=== PATIENT | female | born 1945 | race Caucasian/White ===

== ENCOUNTER → 2019-06-30 08:33 | Outpatient (BNVA) | payer MEDICARE, OTHER, SELFPAY | PROVIDERS: Family Provider Nurse Practitioner; PCP Nurse Practitioner | DX: N18.3 Chronic kidney disease, stage 3 (moderate) (principal); E55.9 Vitamin D deficiency, unspecified; E11.9 Type 2 diabetes mellitus without complications; E03.9 Hypothyroidism, unspecified; Z94.0 Kidney transplant status | CPT/HCPCS: 80069; 82306; 82310; 82570; 83036; 83970; 84156; 84443; 85025 ==

== ENCOUNTER → 2019-10-09 08:33 | Outpatient (BNVA) | payer MEDICARE, OTHER, SELFPAY | PROVIDERS: Family Provider Nurse Practitioner; PCP Nurse Practitioner; Visit Provider Internal Medicine | DX: E11.9 Type 2 diabetes mellitus without complications (principal); N18.3 Chronic kidney disease, stage 3 (moderate) | CPT/HCPCS: 80069; 82044; 82306; 82542; 85025 ==

== ENCOUNTER → 2019-11-10 08:19 | Outpatient (BNVA) | payer MEDICARE, OTHER, SELFPAY | PROVIDERS: Family Provider Nurse Practitioner; PCP Nurse Practitioner; Visit Provider Nurse Practitioner | DX: E11.9 Type 2 diabetes mellitus without complications (principal); E03.9 Hypothyroidism, unspecified | CPT/HCPCS: 80053; 80061; 83036; 84443 ==

== ENCOUNTER → 2020-05-30 08:36 | Outpatient (BNVA) | payer MEDICARE, OTHER, SELFPAY | PROVIDERS: Family Provider Nurse Practitioner; PCP Nurse Practitioner; Visit Provider Nurse Practitioner | DX: E03.9 Hypothyroidism, unspecified (principal); E55.9 Vitamin D deficiency, unspecified; E78.5 Hyperlipidemia, unspecified; J44.9 Chronic obstructive pulmonary disease, unspecified; I12.9 Hypertensive chronic kidney disease with stage 1 through stage 4 chronic kidney disease, or unspecified chronic kidney disease; E11.22 Type 2 diabetes mellitus with diabetic chronic kidney disease; N18.9 Chronic kidney disease, unspecified | CPT/HCPCS: 80053; 80061; 82306; 83036; 84443; 85025 ==

== ENCOUNTER → 2020-06-28 14:17 | Outpatient (BNVA) | payer MEDICARE, OTHER, SELFPAY | PROVIDERS: Family Provider Nurse Practitioner; PCP Nurse Practitioner; Visit Provider Nurse Practitioner Family | DX: R07.9 Chest pain, unspecified (principal) | CPT/HCPCS: 80053; 84484; 85025 ==

== ENCOUNTER 2020-06-30 11:07 | Emergency (ER) | payer MEDICARE, OTHER, SELFPAY ==
[2020-06-30 11:12] VITALS: PULSE 63; RESP 17; O2SAT 99; BMI 32.3
--- NOTE | 2020-06-30 11:28 | ECG_ITS ---
[facility] Test Date: 2020-06-30 Pat Name: Shaila Johnson Department: Room: Gender: Female Coding And Reimbursement Specialist: : 1945 Requested By: Haja Chacko I Order Number: [id number] José MD: Bárbara Ruelas M.D. Measurements Intervals [place] Rate: 58 P: 48 CO: 240 QRS: -48 QRSD: 118 T: 54 QT: 453 QTc: 445 Interpretive Statements SINUS BRADYCARDIA WITH FIRST DEGREE AV BLOCK LEFT AXIS DEVIATION [QRS AXIS < -30] MODERATE INTRAVENTRICULAR CONDUCTION DELAY [110+ ms QRS DURATION] Compared to ECG 02/26/2019 06:10:39 Left-axis deviation now present Intraventricular conduction delay now present Left anterior fascicular block no longer present Electronically Signed On 06-30-2020 21:54:00 MAINTENANCE TECH by Bárbara Ruelas M.D. [id number]
--- NOTE | 2020-06-30 11:28 | XR_ITS ---
WS: [id number] PORTABLE CHEST HISTORY: Acute sided chest pain for one day. COMPARISON: 02/25/2019 Lungs are clear and well expanded. No pleural effusion or pneumothorax. Cardiac size: Normal. Mediastinum/Aorta: Mild atherosclerosis aorta. Degenerative changes at the LEFT humeral head. Abnormal contour of the humeral head. XR/XR chest 1V portable [id number] IMPRESSION: 1. No acute cardiopulmonary disease. 2. Mild atherosclerosis aorta.
[2020-06-30 12:15] LABS: Basophils # 0.1 10^3/uL (0.0-0.1); Basophils % 1.1 %; Eosinophils # 0.2 10^3/uL (0.0-0.8); Eosinophils % 2.6 %; Hematocrit 42.9 % (37.0-47.0); Hemoglobin 13.8 g/dL (11.5-15.3); Lymphocytes # 1.4 10^3/uL (0.8-4.8); Lymphocytes % 22.2 %; Mean Corpuscular HGB Conc 32.2 g/dL (30.0-36.0); Mean Corpuscular Hemoglobin 29.4 pg (28.0-34.0); Mean Corpuscular Volume 91.3 fL (81-99); Mean Platelet Volume 10.5 fL (7.4-10.4); Monocytes # 0.6 10^3/uL (0.2-0.9); Monocytes % 9.9 %; Nucleated Red Blood Cells % 0 %; Platelet Count 199 10^3/cmm (130-400); Red Cell Distribution Width 13.2 % (12.1-15.1); White Blood Count 6.1 10^3/uL (4.0-10.0)
[2020-06-30 12:21] VITALS: BP 185/72; PULSE 51; RESP 15; O2SAT 99
[2020-06-30 12:26] LABS: INR 1.01 (0.8-1.2)
[2020-06-30 12:28] LABS: D Dimer 0.34 ug/mIFEU (0-0.59)
[2020-06-30 12:39] LABS: Troponin(5th) Baseline 13 ng/L (0-10)
[2020-06-30 12:48] LABS: Alanine Aminotransferase 7 U/L (0-33); Albumin Level 3.7 g/dL (3.5-5.2); Alkaline Phosphatase 93 IU/L (35-105); Anion Gap 11.1 (5-19); Aspartate Amino Transferase 8 U/L (0-32); Blood Urea Nitrogen 8 mg/dL (8-23); Calcium 8.4 mg/dL (8.5-10.5); Carbon Dioxide 28 mmol/L (22-29); Chloride 102 mmol/L (98-107); Globulin 1.7 g/dL (1.3-4.6); Glucose 94 mg/dL (65-115); NT Pro B Type Natriuretic Pept 178 pg/mL (0-125); Osmolality Calculated 282 mOsm/kg (285-295); Potassium 4.1 mmol/L (3.5-5.1); Sodium 137 mmol/L (136-145); Total Bilirubin 0.5 mg/dL (0.15-1.2); Total Protein 5.4 g/dL (6.6-8.7)
--- NOTE | 2020-06-30 13:28 | ECG_ITS ---
[facility] Test Date: 2020-06-30 Pat Name: Sahila Johnson Department: Room: Gender: Female Concrete Block Layer: : 1945 Requested By: Haja Chacko I Order Number: [id number] José MD: Bárbara Ruelas M.D. Measurements Intervals [place] Rate: 49 P: 56 TX: 259 QRS: -50 QRSD: 102 T: 5 QT: 462 QTc: 420 Interpretive Statements SINUS BRADYCARDIA WITH FIRST DEGREE AV BLOCK LEFT ANTERIOR FASCICULAR BLOCK [QRS AXIS <= -45, QR IN I, RS IN II] Compared to ECG 06/30/2020 11:16:26 Left anterior fascicular block now present Left-axis deviation no longer present Intraventricular conduction delay no longer present Electronically Signed On 06-30-2020 22:12:57 AFTER SCHOOL PROGRAM ASSISTANT by Bárbara Ruelas M.D. [id number]
--- NOTE | 2020-06-30 14:15 | PC.NURSE ---
EKG done at 1352 and shown to ER doctor
[2020-06-30 14:48] VITALS: PULSE 57; RESP 19; O2SAT 97
--- NOTE | 2020-06-30 15:18 | ED_ITS ---
HPI - Chest Pain General: Chief Complaint: Chest Pain Stated Complaint: CP/ N/V/ ABNORMAL LABS Time Seen by Provider: 06/30/20 11:13 Source: patient Mode of arrival: EMS Limitations: no limitations History of Present Illness: HPI narrative: Patient is a 75-year-old female who has been having chest pain that has been episodic for about a week. She went to see her primary care provider who did blood work including a troponin on this patient. They called her and told her her troponin levels were elevated and so she needs to come to the emergency department for evaluation. complaint: chest pain Onset (ago): week(s) (1) Timing of current episode: episodic Prior episodes: Yes Onset: during rest Pain location: left chest Pain radiation: none Severity: mild Quality: aching Relieving factors: nothing Exacerbating factors: nothing Associated symptoms: Deny abdominal pain, diaphoresis, dyspnea, fever(s), leg edema, nausea, palpitations, sense of impending doom, syncope or vomiting Review of Systems General: Reports: 10 or more systems reviewed and unremarkable except in HPI and below Const: Denies: fever(s) or diaphoresis Eyes: Denies: change in vision or blurry vision ENMT: Denies: throat pain, enlarged tonsils, odynophagia, hoarseness, mouth pain or swelling of lips/tongue Card: Denies: palpitations or syncope Resp: Denies: dyspnea GI: Denies: abdominal pain, nausea or vomiting : Denies: flank pain, difficulty voiding, dysuria, urinary frequency, urinary urgency or urinary hesitancy Musc: Denies: neck pain, back pain or extremity swelling Skin/Breast: Denies: rash, pruritus or erythema Neuro: Denies: headache(s), numbness in extremities or weakness in extremities Endo: Denies: polyuria, polydipsia or tired all the time PFSH ED PFSH: Medical History Acquired hypothyroidism Atrial fibrillation by electrocardiogram Chronic kidney disease, stage 3 COPD with asthma Dyslipidemia Enrolled in chronic care management Essential (primary) hypertension Type 2 diabetes mellitus Vitamin D deficiency Surgical History History of carpal tunnel release RIGHT Family History Other Dementia Diabetes Social History Smoking and tobacco status: current every day smoker Lives independently: Yes Household members: family Housing: House Marital status: / Current occupational status: retired Current gender identity: Female Physical Exam Const: COMMON NORMALS: no acute distress, average body habitus, patient oriented x3, no limitations, healthy appearing, alert and well nourished HENMT: COMMON NORMALS: normocephalic, atraumatic and moist oral mucous membranes HEAD & SCALP: normocephalic and atraumatic Neck/C-Spine: COMMON NORMALS: no meningeal signs and no JVD Resp: COMMON NORMALS: normal respiratory effort, No retractions, No use of accessory muscles, clear to auscultation bilaterally and percussion normal AUSCULTATION: clear to auscultation bilaterally PERCUSSION: percussion normal Cardio: COMMON NORMALS: no JVD, regular rhythm, S1 normal heart sound present, S2 normal heart sound present, No gallops present (Cardio), No clicks present (Cardio), No murmurs present (Cardio), No rub (Cardio) and Peripheral pulses 2+ throughout RATE: bradycardic RHYTHM: regular rhythm HEART SOUNDS: S1 normal heart sound present and S2 normal heart sound present PERIPHERAL PULSES: Peripheral pulses 2+ throughout GI: COMMON NORMALS: Normal to inspection, nondistended, normoactive bowel sounds present, Soft to palpation, non-tender, No hepatosplenomegaly present, no masses and no bruits PALPATION: Yes Soft to palpation and Yes No hepatosplenomegaly present Extremity: COMMON NORMALS: normal to inspection, full ROM, capillary refill normal, no calf tenderness and no pedal edema Neuro: COMMON NORMALS: patient oriented x3 SENSORIUM/ORIENTATION: Yes alert MENINGEAL SIGNS: Yes no meningeal signs Skin: COMMON NORMALS: no rashes or lesions noted, no wounds, turgor normal, no jaundice, no petechiae and no mottling GENERAL SKIN EXAM: no rashes or lesions noted and turgor normal Course Reevaluation(s): Reevaluation #1: Discussed her lab and imaging findings with her. Unremarkable. Baseline troponin mildly elevated for 2-hour with a flat delta. Explained that her chest pain is unlikely to be cardiac in origin. Discussed my conversation with Dr. Galindo. We will put in a referral for case management to schedule an event monitor. She has an appointment with Dr. Galindo tomorrow. She voiced understanding and is in agreement with the plan. Time: 16:45 Consultations: Consultation #1: Discussed the patient with Dr. Galindo. He advised that we discharge the patient with an event monitor because of the hung cardia. Time: 15:31 Vital Signs: Vital signs: Vital Signs Pulse Rate 77 06/30/20 17:05 Respiratory Rate 16 06/30/20 17:05 Blood Pressure 170/69 06/30/20 17:05 Pulse Oximetry 100 06/30/20 17:05 MDM - Chest Pain MDM Narrative: Medical decision making narrative: 75-year-old female who presents to the emergency department with chest pain. Evaluation in the emergency department is unremarkable and she is discharged home with no new orders. Case management order was placed for event monitor because she was bradycardic through most of her stay. No signs of ACS on evaluation so she will be monitored using the event monitor and she will follow up with cardiology. Medical Records: Attestation: I reviewed the patient's medical records. Lab Data: Attestation: I reviewed the patient's lab results. Labs: Lab Results 06/30/20 06/30/20 06/30/20 Range/Units 12:05 12:05 12:05 WBC 6.1 (4.0-10.0) 10^3/ uL RBC 4.70 (4.1-5.3) 10^6/u L Hgb 13.8 (11.5-15.3) g/dL Hct 42.9 (37.0-47.0) % MCV 91.3 (81-99) fL MCH 29.4 (28.0-34.0) pg MCHC 32.2 (30.0-36.0) g/dL RDW 13.2 (12.1-15.1) % Plt Count 199 (130-400) 10^3/c mm MPV 10.5 H (7.4-10.4) fL Neut % (Auto) 64.0 % Lymph % (Auto) 22.2 % Wood[place] % (Auto) 9.9 % Eos % (Auto) 2.6 % Baso % (Auto) 1.1 % Neut # (Auto) 3.90 (1.8-7.7) 10^3/u L Lymph # (Auto) 1.4 (0.8-4.8) 10^3/u L [place] # (Auto) 0.6 (0.2-0.9) 10^3/u L Eos # (Auto) 0.2 (0.0-0.8) 10^3/u L Baso # (Auto) 0.1 (0.0-0.1) 10^3/u L Nucleated RBC % (a uto) 0 % Nucleated RBCs # 0.0 /100WBC PT 13.60 (12.1-14.9) SECO NDS INR 1.01 (0.8-1.2) D-Dimer 0.34 (0-0.59) ug/mIFE U Sodium 137 (136-145) mmol/L Potassium 4.1 (3.5-5.1) mmol/L Chloride 102 (98-107) mmol/L Carbon Dioxide 28 (22-29) mmol/L Anion Gap 11.1 (5-19) BUN 8 (8-23) mg/dL Creatinine 0.8 (0.5-0.9) mg/dL GFR Calculation Not Reportable Glucose 94 (65-115) mg/dL Calculated Osmolal ity 282 L (285-295) mOsm/k g Calcium 8.4 L (8.5-10.5) mg/dL Total Bilirubin 0.5 (0.15-1.2) mg/dL AST 8 (0-32) U/L ALT 7 (0-33) U/L Alkaline Phosphata se 93 (35-105) IU/L Troponin T Baselin e (0-10) ng/L Troponin T 120 Min [place] (0-10) ng/L Delta Troponin T (0-10) ABS# NT-Pro-B Natriuret Pep 178 H (0-125) pg/mL Total Protein 5.4 L (6.6-8.7) g/dL Albumin 3.7 (3.5-5.2) g/dL Globulin 1.7 (1.3-4.6) g/dL 06/30/20 06/30/20 Range/Units 12:05 14:33 WBC (4.0-10.0) 10^3/ uL RBC (4.1-5.3) 10^6/u L Hgb (11.5-15.3) g/dL Hct (37.0-47.0) % MCV (81-99) fL MCH (28.0-34.0) pg MCHC (30.0-36.0) g/dL RDW (12.1-15.1) % Plt Count (130-400) 10^3/c mm MPV (7.4-10.4) fL Neut % (Auto) % Lymph % (Auto) % Wood[place] % (Auto) % Eos % (Auto) % Baso % (Auto) % Neut # (Auto) (1.8-7.7) 10^3/u L Lymph # (Auto) (0.8-4.8) 10^3/u L [place] # (Auto) (0.2-0.9) 10^3/u L Eos # (Auto) (0.0-0.8) 10^3/u L Baso # (Auto) (0.0-0.1) 10^3/u L Nucleated RBC % (a uto) % Nucleated RBCs # /100WBC PT (12.1-14.9) SECO NDS INR (0.8-1.2) D-Dimer (0-0.59) ug/mIFE U Sodium (136-145) mmol/L Potassium (3.5-5.1) mmol/L Chloride (98-107) mmol/L Carbon Dioxide (22-29) mmol/L Anion Gap (5-19) BUN (8-23) mg/dL Creatinine (0.5-0.9) mg/dL GFR Calculation Glucose (65-115) mg/dL Calculated Osmolal ity (285-295) mOsm/k g Calcium (8.5-10.5) mg/dL Total Bilirubin (0.15-1.2) mg/dL AST (0-32) U/L ALT (0-33) U/L Alkaline Phosphata se (35-105) IU/L Troponin T Baselin e 13 H (0-10) ng/L Troponin T 120 Min [place] 14.94 H (0-10) ng/L Delta Troponin T 1.94 (0-10) ABS# NT-Pro-B Natriuret Pep (0-125) pg/mL Total Protein (6.6-8.7) g/dL Albumin (3.5-5.2) g/dL Globulin (1.3-4.6) g/dL Imaging Data^: CXR: Attestation: I personally reviewed and interpreted this imaging study as follows: Radiologist's impression: [facility] [place] [address] XRay Report Signed Patient: Yfn Johnson #: [id number] : 6Acct#:[id number] Age/Sex: 75 / FADM Date: 06/30/20 Loc: ERRoom/Bed: Attending Dr: Ordering Provider/Ordering MD: Haja Chacko MD, [facility] [place] Date of Service: 06/30/20 Procedure(s): XR chest 1V portable [id number] Accession Number(s): [id number] Report Number: [id number] WS: [id number] PORTABLE CHEST HISTORY: Acute sided chest pain for one day. COMPARISON: 02/25/2019 Lungs are clear and well expanded. No pleural effusion or pneumothorax. Cardiac size: Normal. Mediastinum/Aorta: Mild atherosclerosis aorta. Degenerative changes at the LEFT humeral head. Abnormal contour of the humeral head. XR/XR chest 1V portable [id number] IMPRESSION: 1. No acute cardiopulmonary disease. 2. Mild atherosclerosis aorta. Dictated By:Aleshia Newton DO Signed By:Aleshia Newton DOSigned Date/Time:06/30/20 1149 DD/ 1148 EKG Data^: EKG 1: Attestation: I personally reviewed and interpreted this EKG as follows: EKG interpretation date: 07/01/20 EKG interpretation time: 11:16 Prior EKG tracings: not available for review Interpretation: Sinus bradycardia with first-degree AV block. Heart rate [address] changes. EKG 2: Attestation: I personally reviewed and interpreted this EKG as follows: EKG interpretation date: 07/01/20 EKG interpretation time: 13:53 Prior EKG tracings: available for review Interpretation: Sinus bradycardia. Heart rate [address] changes. Discharge Plan Discharge Patient Disposition: Home Clinical Impression: Bradycardia Chest pain Qualifiers: Chest pain type: unspecified Qualified Code(s): R07.9 - Chest pain, unspecified Condition: Stable Prescriptions: Continued nitroglycerin 0.4 mg tablet, sublingual 0.4 mg sublingual Q5M PRN (Reason: chest pain) Qty: 30 RF: 2 Eliquis 5 mg tablet 2.5 mg PO BID@12,00 RF: 0 atorvastatin 80 mg tablet 80 mg PO DAILY@1900 RF: 0 Synthroid 75 mcg tablet 75 mcg PO DAILY@12 RF: 0 Singulair 10 mg tablet 10 mg PO DAILY@03 RF: 0 furosemide 20 mg tablet 20 mg PO DAILY@12 RF: 0 potassium chloride 20 mEq tablet extended release 20 meq PO DAILY@12 RF: 0 Discharge Orders: Discharge ED (Routine); Ordered 06/30/20 Ordered By: Haja Chacko Referrals: Marli Valenzuela, [facility] [Primary Care Provider] - 1-3 days Discharge Diet: Usual diet Discharge Activity: Increase activity as tolerated Patient Instructions: Chest Pain (ED), Bradycardia (ED) Activity Restrictions/Additional Instructions: Return for any new or worsening symptoms. Follow-up with your primary care provider within 3 days. Follow-up with cardiology tomorrow as scheduled. You will be contacted to get a heart monitor to evaluate the electrical rhythm of your heart. Coding Level of Care Code ED Manager Public for Obduliag Fwd Exam Comprehensive
[2020-06-30 16:34] LABS: Troponin 5 2HR 14.94 ng/L (0-10); Troponin 5 2HR Delta 1.94 ABS# (0-10)
[2020-06-30 17:05] VITALS: BP 170/69; PULSE 77; RESP 16; O2SAT 100
--- NOTE | 2020-07-01 15:14 | DCPLANNER ---
kennel manager dog track had message to schedule a follow up appointment for patient for an event monitor. kennel manager dog track faxed signed order to [facility] for an event order. kennel manager dog track will call for appointment information. Clinic will call patient with appointment information.
--- NOTE | 2020-07-13 12:45 | DCPLANNER ---
Patient had a follow up appointment scheduled for 07.12.20 for an event monitor with [facility] - patient did attend appointment.
== END 2020-06-30 17:07 | disposition home or self-care (01) ==
PROVIDERS: Emergency Provider Family Medicine; PCP Nurse Practitioner
DX: R07.9 Chest pain, unspecified (principal); R00.1 Bradycardia, unspecified; Z79.01 Long term (current) use of anticoagulants; I12.9 Hypertensive chronic kidney disease with stage 1 through stage 4 chronic kidney disease, or unspecified chronic kidney disease; E11.22 Type 2 diabetes mellitus with diabetic chronic kidney disease; N18.30 Chronic kidney disease, stage 3 unspecified; J44.9 Chronic obstructive pulmonary disease, unspecified; E78.5 Hyperlipidemia, unspecified; F17.210 Nicotine dependence, cigarettes, uncomplicated
CPT/HCPCS: 71045; 80053; 83880; 84484; 85025; 85378; 85610; 93005; 99283

== ENCOUNTER → 2021-02-07 15:12 | Outpatient (BNVA) | payer MEDICARE, OTHER, SELFPAY | PROVIDERS: PCP Nurse Practitioner; Visit Provider Nurse Practitioner | DX: E11.9 Type 2 diabetes mellitus without complications (principal); E03.9 Hypothyroidism, unspecified; I10 Essential (primary) hypertension; E55.9 Vitamin D deficiency, unspecified | CPT/HCPCS: 80053; 80061; 82306; 83036; 84443; 85025 ==

== ENCOUNTER → 2021-03-21 15:59 | Outpatient (BNVA) | payer MEDICARE, OTHER, SELFPAY | PROVIDERS: PCP Nurse Practitioner; Visit Provider Nurse Practitioner | DX: M25.561 Pain in right knee (principal); M17.11 Unilateral primary osteoarthritis, right knee | CPT/HCPCS: 73562 ==

== ENCOUNTER → 2021-04-05 08:46 | Outpatient (BNVA) | payer MEDICARE, OTHER, SELFPAY | PROVIDERS: PCP Nurse Practitioner; Referring Provider Nurse Practitioner; Visit Provider Specialist | DX: M25.561 Pain in right knee (principal); M17.11 Unilateral primary osteoarthritis, right knee | CPT/HCPCS: 73560; 73565 ==

== ENCOUNTER 2021-05-08 13:28 | Outpatient (CLI) | payer MEDICARE, OTHER, SELFPAY ==
--- NOTE | 2021-05-08 13:45 | MR_ITS ---
WS: [id number] MRI RIGHT KNEE NONCONTRAST TECHNIQUE: Axial PD, coronal PD fat sat, coronal PD, sagittal PD, and sagittal PD fat-sat images obta ined. CLINICAL INFORMATION: M25.569 - Pain in unspecified knee COMPARISON: None. FINDINGS: ACL and PCL appear intact. Moderate chronic thinning of the ACL. Distal quadriceps and patella tendon s are intact. Slightly hypertrophic patella. Chronic thinning of the medial and lateral meniscus. No acute appearing meniscal tears. Normal medial and lateral collateral ligaments. Moderate joint space narrowing involving the medial and lateral joint compartments. Advanced chondromalacia patella. Normal medial and lateral patellar retinaculum. No subchondral edema . Diffuse subcutaneous edema about the knee. Normal popliteal fossa. Subchondral cystic change involv ing the anterolateral femoral condyle. No edema in the tibial plateau. MR/MR knee RT wo con* [id number] IMPRESSION: 1. Moderate chronic thinning of the ACL. ACL and PCL appear intact. 2. Chronic thinning of the medial and lateral meniscus. No acute appearing men iscal tears. 3. Moderate joint space narrowing medial and lateral joint compartments. Subch ondral cystic change involving the anterior lateral femoral condyle. 4. Advanced chondromalacia patella. No subchondral edema. 5. Medial and lateral collateral ligaments appear intact. Outbridge grading: grade III: partial-thickness cartilage loss with focal ulcer ation
== END 2021-05-08 13:29 | disposition home or self-care (01) ==
LOC: RADSHAW 13:35
PROVIDERS: PCP Nurse Practitioner; Visit Provider Nurse Practitioner
DX: M25.561 Pain in right knee (principal); M22.41 Chondromalacia patellae, right knee
CPT/HCPCS: 73721

== ENCOUNTER → 2021-07-10 10:44 | Outpatient (BNVA) | payer MEDICARE, SELFPAY | PROVIDERS: PCP Nurse Practitioner; Visit Provider Internal Medicine Cardiovascular Disease | DX: I48.91 Unspecified atrial fibrillation (principal); E78.5 Hyperlipidemia, unspecified; I10 Essential (primary) hypertension; F17.200 Nicotine dependence, unspecified, uncomplicated | CPT/HCPCS: 99214; 99215 ==

== ENCOUNTER → 2021-08-14 14:02 | Outpatient (BNVA) | payer MEDICARE, OTHER, SELFPAY | PROVIDERS: PCP Nurse Practitioner; Visit Provider Internal Medicine Cardiovascular Disease | DX: I48.91 Unspecified atrial fibrillation (principal); I49.3 Ventricular premature depolarization; I49.1 Atrial premature depolarization; R42 Dizziness and giddiness; R53.83 Other fatigue | CPT/HCPCS: 93229 ==

== ENCOUNTER → 2022-02-15 11:33 | Outpatient (BNVA) | payer MEDICARE, OTHER, SELFPAY | PROVIDERS: PCP Nurse Practitioner; Visit Provider Internal Medicine Cardiovascular Disease | DX: I25.10 Atherosclerotic heart disease of native coronary artery without angina pectoris (principal); E78.5 Hyperlipidemia, unspecified; I12.9 Hypertensive chronic kidney disease with stage 1 through stage 4 chronic kidney disease, or unspecified chronic kidney disease; E11.22 Type 2 diabetes mellitus with diabetic chronic kidney disease; F17.200 Nicotine dependence, unspecified, uncomplicated; N18.30 Chronic kidney disease, stage 3 unspecified; E03.9 Hypothyroidism, unspecified | CPT/HCPCS: 99214 ==

== ENCOUNTER → 2022-02-19 10:16 | Outpatient (BNVA) | payer MEDICARE, OTHER, SELFPAY | PROVIDERS: PCP Nurse Practitioner; Visit Provider Nurse Practitioner Family | DX: E11.9 Type 2 diabetes mellitus without complications (principal); E03.9 Hypothyroidism, unspecified; I10 Essential (primary) hypertension; E78.5 Hyperlipidemia, unspecified; J44.9 Chronic obstructive pulmonary disease, unspecified | CPT/HCPCS: 80053; 80061; 83036; 84443; 85025 ==

== ENCOUNTER → 2022-06-14 14:40 | Outpatient (BNVA) | payer MEDICARE, OTHER, SELFPAY | PROVIDERS: PCP Nurse Practitioner; Visit Provider Nurse Practitioner | DX: K59.01 Slow transit constipation (principal); E78.5 Hyperlipidemia, unspecified; E03.9 Hypothyroidism, unspecified; E11.9 Type 2 diabetes mellitus without complications | CPT/HCPCS: 74018; 80053; 80061; 83036; 84439; 84443; 84481; 85025 ==

== ENCOUNTER → 2022-09-06 13:32 | Outpatient (BNVA) | payer MEDICARE, OTHER, SELFPAY | PROVIDERS: PCP Nurse Practitioner; Visit Provider Nurse Practitioner | DX: E03.9 Hypothyroidism, unspecified (principal) | CPT/HCPCS: 80053; 84443 ==

== ENCOUNTER → 2022-09-18 14:10 | Outpatient (BNVA) | payer MEDICARE, OTHER, SELFPAY | PROVIDERS: PCP Nurse Practitioner; Visit Provider Nurse Practitioner Family | DX: I48.91 Unspecified atrial fibrillation (principal); Z79.01 Long term (current) use of anticoagulants; Z87.891 Personal history of nicotine dependence; I12.9 Hypertensive chronic kidney disease with stage 1 through stage 4 chronic kidney disease, or unspecified chronic kidney disease; E11.22 Type 2 diabetes mellitus with diabetic chronic kidney disease; N18.30 Chronic kidney disease, stage 3 unspecified | CPT/HCPCS: 99214 ==

== ENCOUNTER 2022-12-14 21:39 | Emergency (ER) | payer MEDICARE, OTHER, SELFPAY ==
[2022-12-14 21:45] VITALS: BP 206/47; PULSE 46; RESP 18; TEMP 36.8; O2SAT 100; BMI 34.7
--- NOTE | 2022-12-14 21:51 | XRR_ITS ---
PROCEDURE INFORMATION: Exam: XR Chest Exam date and time: 12/14/2022 10:17 PM Age: 77 years old Clinical indication: Other: Dizzy; Additional info: Bradycardia TECHNIQUE: Imaging protocol: Radiologic exam of the chest. Views: 1 view. COMPARISON: CR XR chest 1V portable [id number] 06/30/2020 11:48 AM FINDINGS: Lungs: Unremarkable. No consolidation. Pleural spaces: Unremarkable. No pleural effusion. No pneumothorax. Heart/Mediastinum: Unremarkable. No cardiomegaly. There is prominence of the descending thoracic aorta. Bones/joints: Patient is status post bilateral shoulder surgery. XR/XR chest 1V portable [id number] IMPRESSION: No acute cardiopulmonary disease..
--- NOTE | 2022-12-14 21:58 | ED_ITS ---
Documented by User: Jayson Steve DO 12/14/22 22:30 HPI - General Adult General: Chief complaint: Arrhythmia/Palpitations Stated complaint: left arm pain, bradycardia Time Seen by Provider: 12/14/22 21:49 History of Present Illness: Presents to the ER for bradycardia. Family noticed patient become more uncooperative and irritable over the last couple weeks. Especially when he started trying to do her medications for her. Patient does have dementia and she is not seeing a person for that on Saturday. For about the last 2 weeks family has been trying to help her out with her medication and various things and patient is becoming very agitated, irritable and anxious when they try to help her. Patient also states she has become lightheaded dizzy especially when she stands up or moves about. Patient has a history of diabetes and cardiac issues as she has diagnoses of atrial fibrillation, hypertension, type 2 diabetes, chronic kidney disease. Patient is pain-free at this moment. Review of Systems General: Reports: 10 or more systems reviewed and unremarkable except in HPI and below PFSH ED PFSH: Medical History Acquired hypothyroidism Atrial fibrillation by electrocardiogram Patient is on a reduced dose of Eliquis because of the easy bruising Chronic kidney disease, stage 3 COPD with asthma Dyslipidemia Enrolled in chronic care management Essential (primary) hypertension Type 2 diabetes mellitus Vitamin D deficiency Surgical History History of carpal tunnel release RIGHT Family History Other Dementia Diabetes Social History Smoking and tobacco status: former smoker Second hand smoke exposure: No Smoking risk assessment/counseling performed?: Yes Alcohol intake: unknown Desire information about alcohol rehabilitation?: No Counseling given: No Substance/Drug Use: unknown Desire information about substance/drug rehabilitation?: No Counseling given: No Adopted: No Caregiver/support person: No Lives independently: Yes Household members: family Housing: House Marital status: / service: No Current occupational status: retired Do you think of yourself as: Straight/Heterosexual Current gender identity: Female Physical Exam Narrative: EXAM NARRATIVE: Patient is agitated and irritable during exam Const: COMMON NORMALS: no acute distress, average body habitus, healthy appearing, alert and well nourished HENMT: COMMON NORMALS: normocephalic, atraumatic, hearing grossly normal bilaterally, external ears normal, Normal external nose present and moist oral mucous membranes HEAD & SCALP: normocephalic and atraumatic NOSE: Normal external nose present EXTERNAL EAR: Yes external ears normal Eye: COMMON NORMALS: Equal, round and reactive pupils present, EOMs intact bilaterally, conjunctivae normal and no scleral icterus CONJUNCTIVA: Yes conjunctivae normal PUPIL: Yes Equal, round and reactive pupils present Neck/C-Spine: COMMON NORMALS: full ROM, no lymphadenopathy, supple, no meningeal signs and no JVD Chest: COMMONS NORMALS: normal inspection of the chest and normal palpation of entire chest wall Resp: COMMON NORMALS: normal respiratory effort, No retractions, No use of accessory muscles and clear to auscultation bilaterally AUSCULTATION: clear to auscultation bilaterally Cardio: COMMON NORMALS: no JVD, regular rhythm, S1 normal heart sound present and S2 normal heart sound present; negative for regular rate (Bradycardia) RATE: abnormal rate (Bradycardia) RHYTHM: regular rhythm HEART SOUNDS: S1 normal heart sound present and S2 normal heart sound present GI: COMMON NORMALS: Normal to inspection, nondistended, normoactive bowel sounds present, Soft to palpation, non-tender, No hepatosplenomegaly present and no masses PALPATION: Yes Soft to palpation and Yes No hepatosplenomegaly present Neuro: SENSORIUM/ORIENTATION: Yes alert MENINGEAL SIGNS: Yes no meningeal signs Course Vital Signs: Vital signs: Vital Signs Temperature 98.3 F 12/14/22 21:45 Pulse Rate 54 L 12/15/22 01:14 Respiratory Rate 35 H 12/15/22 01:14 Blood Pressure 144/90 12/14/22 23:41 Pulse Oximetry 100 12/15/22 01:14 Oxygen Delivery Me thod Room Air 12/14/22 21:45 [facility] - General Adult Differential Diagnosis Bradycardia, dementia, hypothyroidism, atrial fibrillation with slow ventricular response Medical Records I reviewed the patient's medical records. Lab Data I reviewed the patient's lab results. 12/14/22 22:10 12/14/22 22:10 Radiology Impressions Chest X-Ray 12/14/22 21:51 IMPRESSION: No acute cardiopulmonary disease.. Laboratory Results WBC 5.7 10^3/uL (4.0-10.0) 12/14/22 22:10 RBC 4.19 10^6/uL (4.1-5.3) 12/14/22 22:10 Hgb 12.6 g/dL (11.5-15.3) 12/14/22 22:10 Hct 39.1 % (37.0-47.0) 12/14/22 22:10 MCV 93.3 fl (81-99) 12/14/22 22:10 MCH 30.1 pg (28.0-34.0) 12/14/22 22:10 MCHC 32.2 g/dL (30.0-36.0) 12/14/22 22:10 RDW 13.3 % (12.1-15.1) 12/14/22 22:10 Plt Count 164 10^3/cmm (130-400) 12/14/22 22:10 MPV 10.5 fL (7.4-10.4) H 12/14/22 22:10 Neut % (Auto) 54.5 % 12/14/22 22:10 Lymph % (Auto) 27.7 % 12/14/22 22:10 Harlan % (Auto) 12.1 % 12/14/22 22:10 Eos % (Auto) 4.4 % 12/14/22 22:10 Baso % (Auto) 0.9 % 12/14/22 22:10 Neut # (Auto) 3.12 10^3/uL (1.8-7.7) 12/14/22 22:10 Lymph # (Auto) 1.6 10^3/uL (0.8-4.8) 12/14/22 22:10 Harlan # (Auto) 0.7 10^3/uL (0.2-0.9) 12/14/22 22:10 Eos # (Auto) 0.3 10^3/uL (0.0-0.8) 12/14/22 22:10 Baso # (Auto) 0.1 10^3/uL (0.0-0.1) 12/14/22 22:10 Nucleated RBC % (auto) 0 % 12/14/22 22:10 Nucleated RBCs # 0.0 /100WBC 12/14/22 22:10 PT 14.50 SECONDS (12.1-14.9) 12/14/22 22:10 INR 1.10 (0.8-1.2) 12/14/22 22:10 Sodium 138 mmol/L (136-145) 12/14/22 22:10 Potassium 4.4 mmol/L (3.5-5.1) 12/14/22 22:10 Chloride 104 mmol/L (98-107) 12/14/22 22:10 Carbon Dioxide 27 mmol/L (22-29) 12/14/22 22:10 Anion Gap 11.4 (5-19) 12/14/22 22:10 BUN 17 mg/dL (8-23) 12/14/22 22:10 Creatinine 1.0 mg/dL (0.5-0.9) H 12/14/22 22:10 GFR Calculation Not Reportable 12/14/22 22:10 Glucose 107 mg/dL (65-115) 12/14/22 22:10 Calculated Osmolality 288 mOsm/kg (285-295) 12/14/22 22:10 Calcium 8.7 mg/dL (8.5-10.5) 12/14/22 22:10 Magnesium 2.0 mg/dL (1.7-2.3) 12/14/22 22:10 Total Bilirubin 0.5 mg/dL (0.15-1.2) 12/14/22 22:10 AST 9 U/L (0-32) 12/14/22 22:10 ALT 8 U/L (0-33) 12/14/22 22:10 Alkaline Phosphatase 83 U/L (35-105) 12/14/22 22:10 Troponin T Baseline 24 ng/L (0-10) H 12/14/22 22:10 Troponin T 120 Minute 24.72 ng/L (0-10) H 12/15/22 00:10 Delta Troponin T 0.72 ABS# (0-10) 12/15/22 00:10 Total Protein 5.3 g/dL (6.6-8.7) L 12/14/22 22:10 Albumin 3.7 g/dL (3.5-5.2) 12/14/22 22:10 Globulin 1.6 g/dL (1.3-4.6) 12/14/22 22:10 TSH 0.12 uIU/mL (0.27-4.20) L 12/14/22 22:10 Urine Color Colorless (Yellow) 12/14/22 21:57 Urine Appearance Clear (CLEAR) 12/14/22 21:57 Urine pH 7 (5-7) 12/14/22 21:57 Ur Specific [place] 1.005 (1.005-1.030) 12/14/22 21:57 Urine Protein Neg (Negative) 12/14/22 21:57 Urine Glucose (UA) Norm (Normal) 12/14/22 21:57 Urine Ketones Negative (Negative) 12/14/22 21:57 Urine Blood Neg (Negative) 12/14/22 21:57 Urine Nitrate Negative (Negative) 12/14/22 21:57 Urine Bilirubin Neg (Negative) 12/14/22 21:57 Urine Urobilinogen Norm mg/dL (Negative) 12/14/22 21:57 Ur Leukocyte Esterase 1+ (Negative) H 12/14/22 21:57 Urine RBC 0-4 /hpf (0-2) H 12/14/22 21:57 Urine WBC 0-4 /hpf (0-5) H 12/14/22 21:57 Ur Squamous Epith Cells 0-4 /hpf (0-5) H 12/14/22 21:57 Amorphous Sediment Not Reportable 12/14/22 21:57 Urine Bacteria Trace /hpf (NONE) 12/14/22 21:57 Discharge Plan Discharge Patient Disposition: Home Clinical Impression: Bradycardia, Near syncope Condition: Stable Prescriptions: No Action nitroglycerin 0.4 mg tablet, sublingual 0.4 mg sublingual Q5M PRN (Reason: chest pain) Qty: 30 2RF Rx Instructions: do not exceed 3 doses per episode mupirocin 2 % ointment 1 applic topical BID PRN (Reason: skin irritation ) Qty: 22 0RF Rx Instructions: apply on arms and legs atorvastatin 80 mg tablet 80 mg PO .at bedtime Qty: 90 1RF Singulair 10 mg tablet 10 mg PO DAILY Qty: 90 1RF potassium chloride 20 mEq tablet extended release 20 meq PO DAILY@12 Qty: 90 1RF levothyroxine 100 mcg tablet 100 mcg PO DAILY Qty: 90 1RF furosemide 20 mg tablet 20 mg PO DAILY@12 PRN (Reason: weight gain) Qty: 90 0RF apixaban 2.5 mg tablet 2.5 mg PO BID Qty: 180 3RF Rx Instructions: Dose reduced losartan 25 mg tablet 25 mg PO .hs Qty: 90 1RF atenolol 25 mg tablet 12.5 mg PO QAM Qty: 90 3RF Discharge Orders: Discharge ED (Routine); Ordered 12/15/22 Ordered By: Ranulfo Nieto Referrals: Marli Valenzuela FNPSaltyC [Primary Care Provider] - 1-3 days Patient Instructions: Bradycardia (ED), Near Syncope (ED) Activity Restrictions/Additional Instructions: Return for repeated episodes of syncope or passing out, complaints of chest discomfort, shortness of breath, any other concerning symptoms. Coding Level of Care Code ED Farm Equipment Service Technician for Chg Fwd Documented by User: Ranulfo Nieto DO 12/16/22 02:34 HPI - General Adult General: Chief complaint: Arrhythmia/Palpitations Stated complaint: left arm pain, bradycardia Time Seen by Provider: 12/14/22 21:49 PFSH ED 2 PFSH: Medical History Acquired hypothyroidism Atrial fibrillation by electrocardiogram Patient is on a reduced dose of Eliquis because of the easy bruising Chronic kidney disease, stage 3 COPD with asthma Dyslipidemia Enrolled in chronic care management Essential (primary) hypertension Type 2 diabetes mellitus Vitamin D deficiency Surgical History History of carpal tunnel release RIGHT Family History Other Dementia Diabetes Social History Smoking and tobacco status: former smoker Second hand smoke exposure: No Smoking risk assessment/counseling performed?: Yes Alcohol intake: unknown Desire information about alcohol rehabilitation?: No Counseling given: No Substance/Drug Use: unknown Desire information about substance/drug rehabilitation?: No Counseling given: No Adopted: No Caregiver/support person: No Lives independently: Yes Household members: family Housing: House Marital status: / service: No Current occupational status: retired Do you think of yourself as: Straight/Heterosexual Current gender identity: Female Course Vital Signs: Vital signs: Vital Signs Temperature 98.3 F 12/14/22 21:45 Pulse Rate 54 L 12/15/22 01:14 Respiratory Rate 35 H 12/15/22 01:14 Blood Pressure 144/90 12/14/22 23:41 Pulse Oximetry 100 12/15/22 01:14 Oxygen Delivery Me thod Room Air 12/14/22 21:45 MDM - General Adult Medical Decision Making 77-year-old female checked out to me by Dr. Steve at shift change. This lady is somewhat cantankerous. She presents with near syncope essentially. She has had no repeated episodes here, despite significant bradycardia. Her son notes that the bradycardia is a chronic condition, for which she has been evaluated multiple times by cardiology, and had a Holter monitor placement, etc. She remains mildly hypertensive, despite the bradycardia. No witnessed syncope here despite bradycardia. She was checked out to me pending a second troponin, which did not change significantly. Other laboratory is benign. Chest x-ray is negative. She will be discharged home, to return for any new or worsening symptoms. Lab Data 12/14/22 22:10 12/14/22 22:10 Radiology Impressions Chest X-Ray 12/14/22 21:51 IMPRESSION: No acute cardiopulmonary disease.. Laboratory Results WBC 5.7 10^3/uL (4.0-10.0) 12/14/22 22:10 RBC 4.19 10^6/uL (4.1-5.3) 12/14/22 22:10 Hgb 12.6 g/dL (11.5-15.3) 12/14/22 22:10 Hct 39.1 % (37.0-47.0) 12/14/22 22:10 MCV 93.3 fl (81-99) 12/14/22 22:10 MCH 30.1 pg (28.0-34.0) 12/14/22 22:10 MCHC 32.2 g/dL (30.0-36.0) 12/14/22 22:10 RDW 13.3 % (12.1-15.1) 12/14/22 22:10 Plt Count 164 10^3/cmm (130-400) 12/14/22 22:10 MPV 10.5 fL (7.4-10.4) H 12/14/22 22:10 Neut % (Auto) 54.5 % 12/14/22 22:10 Lymph % (Auto) 27.7 % 12/14/22 22:10 Harlan % (Auto) 12.1 % 12/14/22 22:10 Eos % (Auto) 4.4 % 12/14/22 22:10 Baso % (Auto) 0.9 % 12/14/22 22:10 Neut # (Auto) 3.12 10^3/uL (1.8-7.7) 12/14/22 22:10 Lymph # (Auto) 1.6 10^3/uL (0.8-4.8) 12/14/22 22:10 Harlan # (Auto) 0.7 10^3/uL (0.2-0.9) 12/14/22 22:10 Eos # (Auto) 0.3 10^3/uL (0.0-0.8) 12/14/22 22:10 Baso # (Auto) 0.1 10^3/uL (0.0-0.1) 12/14/22 22:10 Nucleated RBC % (auto) 0 % 12/14/22 22:10 Nucleated RBCs # 0.0 /100WBC 12/14/22 22:10 PT 14.50 SECONDS (12.1-14.9) 12/14/22 22:10 INR 1.10 (0.8-1.2) 12/14/22 22:10 Sodium 138 mmol/L (136-145) 12/14/22 22:10 Potassium 4.4 mmol/L (3.5-5.1) 12/14/22 22:10 Chloride 104 mmol/L (98-107) 12/14/22 22:10 Carbon Dioxide 27 mmol/L (22-29) 12/14/22 22:10 Anion Gap 11.4 (5-19) 12/14/22 22:10 BUN 17 mg/dL (8-23) 12/14/22 22:10 Creatinine 1.0 mg/dL (0.5-0.9) H 12/14/22 22:10 GFR Calculation Not Reportable 12/14/22 22:10 Glucose 107 mg/dL (65-115) 12/14/22 22:10 Calculated Osmolality 288 mOsm/kg (285-295) 12/14/22 22:10 Calcium 8.7 mg/dL (8.5-10.5) 12/14/22 22:10 Magnesium 2.0 mg/dL (1.7-2.3) 12/14/22 22:10 Total Bilirubin 0.5 mg/dL (0.15-1.2) 12/14/22 22:10 AST 9 U/L (0-32) 12/14/22 22:10 ALT 8 U/L (0-33) 12/14/22 22:10 Alkaline Phosphatase 83 U/L (35-105) 12/14/22 22:10 Troponin T Baseline 24 ng/L (0-10) H 12/14/22 22:10 Troponin T 120 Minute 24.72 ng/L (0-10) H 12/15/22 00:10 Delta Troponin T 0.72 ABS# (0-10) 12/15/22 00:10 Total Protein 5.3 g/dL (6.6-8.7) L 12/14/22 22:10 Albumin 3.7 g/dL (3.5-5.2) 12/14/22 22:10 Globulin 1.6 g/dL (1.3-4.6) 12/14/22 22:10 TSH 0.12 uIU/mL (0.27-4.20) L 12/14/22 22:10 Urine Color Colorless (Yellow) 12/14/22 21:57 Urine Appearance Clear (CLEAR) 12/14/22 21:57 Urine pH 7 (5-7) 12/14/22 21:57 Ur Specific [place] 1.005 (1.005-1.030) 12/14/22 21:57 Urine Protein Neg (Negative) 12/14/22 21:57 Urine Glucose (UA) Norm (Normal) 12/14/22 21:57 Urine Ketones Negative (Negative) 12/14/22 21:57 Urine Blood Neg (Negative) 12/14/22 21:57 Urine Nitrate Negative (Negative) 12/14/22 21:57 Urine Bilirubin Neg (Negative) 12/14/22 21:57 Urine Urobilinogen Norm mg/dL (Negative) 12/14/22 21:57 Ur Leukocyte Esterase 1+ (Negative) H 12/14/22 21:57 Urine RBC 0-4 /hpf (0-2) H 12/14/22 21:57 Urine WBC 0-4 /hpf (0-5) H 12/14/22 21:57 Ur Squamous Epith Cells 0-4 /hpf (0-5) H 12/14/22 21:57 Amorphous Sediment Not Reportable 12/14/22 21:57 Urine Bacteria Trace /hpf (NONE) 12/14/22 21:57 Discharge Plan Discharge Patient Disposition: Home Clinical Impression: Bradycardia, Near syncope Condition: Stable Prescriptions: No Action nitroglycerin 0.4 mg tablet, sublingual 0.4 mg sublingual Q5M PRN (Reason: chest pain) Qty: 30 2RF Rx Instructions: do not exceed 3 doses per episode mupirocin 2 % ointment 1 applic topical BID PRN (Reason: skin irritation ) Qty: 22 0RF Rx Instructions: apply on arms and legs atorvastatin 80 mg tablet 80 mg PO .at bedtime Qty: 90 1RF Singulair 10 mg tablet 10 mg PO DAILY Qty: 90 1RF potassium chloride 20 mEq tablet extended release 20 meq PO DAILY@12 Qty: 90 1RF levothyroxine 100 mcg tablet 100 mcg PO DAILY Qty: 90 1RF furosemide 20 mg tablet 20 mg PO DAILY@12 PRN (Reason: weight gain) Qty: 90 0RF apixaban 2.5 mg tablet 2.5 mg PO BID Qty: 180 3RF Rx Instructions: Dose reduced losartan 25 mg tablet 25 mg PO .hs Qty: 90 1RF atenolol 25 mg tablet 12.5 mg PO QAM Qty: 90 3RF Discharge Orders: Discharge ED (Routine); Ordered 12/15/22 Ordered By: Ranulfo Nieto Referrals: Marli Valenzuela FNP-C [Primary Care Provider] - 1-3 days Patient Instructions: Bradycardia (ED), Near Syncope (ED) Activity Restrictions/Additional Instructions: Return for repeated episodes of syncope or passing out, complaints of chest discomfort, shortness of breath, any other concerning symptoms. Coding Level of Care Code ED Farm Equipment Service Technician for Pierre Campos
[2022-12-14 22:14] LABS: Add Urine Culture? No; Add Urine Microscopic? YES; Bacteria Urine TRACE /hpf; Bilirubin Urine Neg (Negative); Blood Urine Neg (Negative); Glucose Urine UA Norm (Normal); Ketones Urine Negative (Negative); Leukocyte Esterase Urine 1+ (Negative); Nitrate Urine Negative (Negative); Protein Urine Neg (Negative); RBC Urine 0-4 /hpf (0-2); Specific Gravity, Urine 1.005 (1.005-1.030); Squamous Epithelial Cell Urine 0-4 /hpf (0-5); Urine Appearance Clear (CLEAR); Urine Color Colorless (Yellow); Urobilinogen Urine Norm (Negative); WBC Urine 0-4 /hpf (0-5); pH Urine 7 (5-7)
[2022-12-14 22:17] LABS: Basophils # 0.1 10^3/uL (0.0-0.1); Basophils % 0.9 %; Eosinophils # 0.3 10^3/uL (0.0-0.8); Eosinophils % 4.4 %; Hematocrit 39.1 % (37.0-47.0); Hemoglobin 12.6 g/dL (11.5-15.3); Lymphocytes # 1.6 10^3/uL (0.8-4.8); Lymphocytes % 27.7 %; Mean Corpuscular HGB Conc 32.2 g/dL (30.0-36.0); Mean Corpuscular Hemoglobin 30.1 pg (28.0-34.0); Mean Corpuscular Volume 93.3 fl (81-99); Mean Platelet Volume 10.5 fL (7.4-10.4); Monocytes # 0.7 10^3/uL (0.2-0.9); Monocytes % 12.1 %; Neutrophils # 3.12 10^3/uL (1.8-7.7); Neutrophils % 54.5 %; Nucleated Red Blood Cells % 0 %; Platelet Count 164 10^3/cmm (130-400); Red Blood Count 4.19 10^6/uL (4.1-5.3); Red Cell Distribution Width 13.3 % (12.1-15.1); White Blood Count 5.7 10^3/uL (4.0-10.0)
--- NOTE | 2022-12-14 22:33 | ECG_ITS ---
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 Measurements Intervals [place] Rate: 44 P: -24 AR: 188 QRS: -41 QRSD: 110 T: 33 QT: 481 QTc: 415 Interpretive Statements SINUS BRADYCARDIA LEFT AXIS DEVIATION [QRS AXIS < -30] PATTERN CONSISTENT WITH PULMONARY DISEASE SEPTAL MYOCARDIAL INFARCTION , OF INDETERMINATE AGE [40+ ms Q WAVE IN V1/V2] Compared to ECG 06/30/2020 13:52:56 Left-axis deviation now present Myocardial infarct finding now present First degree AV block no longer present Left anterior fascicular block no longer present Electronically Signed On 12-14-2022 22:42:51 CDT by Alec Galindo M.D. [id number]
[2022-12-14 22:36] LABS: Troponin(5th) Baseline 24 ng/L (0-10)
[2022-12-14 23:07] LABS: Alanine Aminotransferase 8 U/L (0-33); Albumin Level 3.7 g/dL (3.5-5.2); Alkaline Phosphatase 83 U/L (35-105); Anion Gap 11.4 (5-19); Aspartate Amino Transferase 9 U/L (0-32); Blood Urea Nitrogen 17 mg/dL (8-23); Calcium 8.7 mg/dL (8.5-10.5); Carbon Dioxide 27 mmol/L (22-29); Chloride 104 mmol/L (98-107); Creatinine Clr Calc Pharmacy 48.7584; Globulin 1.6 g/dL (1.3-4.6); Glucose 107 mg/dL (65-115); Osmolality Calculated 288 mOsm/kg (285-295); Potassium 4.4 mmol/L (3.5-5.1); Sodium 138 mmol/L (136-145); Total Bilirubin 0.5 mg/dL (0.15-1.2); Total Protein 5.3 g/dL (6.6-8.7)
[2022-12-14 23:09] LABS: Thyroid Stimulating Hormone 0.12 uIU/mL (0.27-4.20)
[2022-12-14 23:41] VITALS: BP 144/90; PULSE 43; RESP 16; O2SAT 100
[2022-12-15 00:39] LABS: Troponin 5 2HR 24.72 ng/L (0-10)
[2022-12-15 00:40] VITALS: PULSE 51; RESP 17
[2022-12-15 00:44] LABS: Troponin 5 2HR Delta 0.72 ABS# (0-10)
[2022-12-15 01:14] VITALS: PULSE 54; RESP 35; O2SAT 100
== END 2022-12-15 01:25 | disposition home or self-care (01) ==
PROVIDERS: Emergency Medicine; Emergency Provider Emergency Medicine; PCP Nurse Practitioner
DX: R00.1 Bradycardia, unspecified (principal); F03.90 Unspecified dementia, unspecified severity, without behavioral disturbance, psychotic disturbance, mood disturbance, and anxiety; E03.9 Hypothyroidism, unspecified; I48.91 Unspecified atrial fibrillation; R55 Syncope and collapse
CPT/HCPCS: 36415; 71045; 80053; 81001; 83735; 84443; 84484; 85025; 85610; 93005; 99285

== ENCOUNTER → 2023-05-06 11:33 | Outpatient (BNVA) | payer MEDICARE, OTHER, SELFPAY | PROVIDERS: PCP Nurse Practitioner; Visit Provider Nurse Practitioner | DX: I48.91 Unspecified atrial fibrillation (principal); E78.5 Hyperlipidemia, unspecified; J44.9 Chronic obstructive pulmonary disease, unspecified; I10 Essential (primary) hypertension; E11.9 Type 2 diabetes mellitus without complications; E03.9 Hypothyroidism, unspecified; E55.9 Vitamin D deficiency, unspecified | CPT/HCPCS: 80053; 82306; 82607; 83036; 84439; 84443; 84481; 85025 ==

== ENCOUNTER → 2023-06-24 11:50 | Outpatient (BNVA) | payer MEDICARE, OTHER, SELFPAY | PROVIDERS: PCP Nurse Practitioner; Visit Provider Nurse Practitioner | DX: R19.5 Other fecal abnormalities | CPT/HCPCS: 80053; 85025 ==

== ENCOUNTER 2023-07-03 07:09 | Outpatient (CLI) | payer MEDICARE, OTHER, SELFPAY ==
--- NOTE | 2023-07-03 07:15 | CT_ITS ---
WS: [id number] CT ABDOMEN AND PELVIS WITH CONTRAST HISTORY: R19.5 - Other fecal abnormalities TECHNIQUE: Imaging performed of the abdomen and pelvis with IV contrast. Single phase imaging of the abdomen. Coronal and sagittal reformats are submitted. All CT scans at [facility] use at [address] one of these dose optimization techniques: automated exposure control; mA and/or kV adjustment per patient size (includes targeted exams where dose is matched to clinical indication); or iterative re construction. IV CONTRAST: Omnipaque 350; 100 mL IV. Oral contrast: Yes. DLP: 334.71 mGy.cm COMPARISON: None available. Lower thorax: 5 mm noncalcified nodules LEFT lung base. Additional 4 mm nodule at the RIGHT lung bas e. Heart is normal size. No hiatal hernia. Liver/biliary system: Tricuspid regurgitation into the hepatic veins. Gallbladder: Hyperdense focus in the gallbladder is probably a small stone. No evidence for acute cho lecystitis. Pancreas: Normal size pancreas and pancreatic duct. No adjacent inflammation. Spleen: Normal size spleen. No mass or infarct. Adrenal glands: Mild thickening of the LEFT adrenal gland. Negative RIGHT adrenal gland. Right kidney: Mild cortical atrophy. No mass or obstruction. Left kidney: Mild cortical atrophy, no mass or obstruction. Aorta: Moderate atherosclerosis with no aneurysm. There is heavy dense calcification involving the ce liac axis and the superior mesenteric artery. High-grade stenosis involving the proximal SMA but no o cclusion. Calcification in the proximal renal arteries. Lymphadenopathy: None. Free fluid: None. GI tract: Nondistended stomach. No small bowel obstruction. There is increased fecal material through out the colon. No wall thickening or obstructive pattern. Increasing inspissated fecal material towar ds the rectum. The fecal material is of low attenuation suggesting increased fatty content. Mild dive rticular disease without acute diverticulitis. Abdominal wall: Soft tissue thickening along the ventral abdominal wall with associated calcification s. Probably patient's normal anatomy may be from prior surgery. Patient did not provide a history of surgery. Pelvis: No ascites or mass. Normal appearance of the uterus and ovaries for age. Calcification in the RIGHT uterus is probably a fibroid. Bones: Unremarkable. IMPRESSION: 1. Diffuse constipation with no obstruction. 2. Mild distal colonic diverticulosis without acute diverticulitis. 3. Extensive atherosclerotic calcification in the aorta and mesenteric arteries. Component of stenos is especially involving the SMA is likely. No ischemic changes within the GI tract. 4. No adenopathy or ascites. 5. Mild bilateral renal cortical thinning. 6. Hyperdense focus in the gallbladder. Stone versus wall calcification. This can be further evaluat ed by ultrasound.
[2023-07-03] MEDS: iohexol 350 mg/mL 500 mL Btl (per mL) PO (08:21)
[2023-07-03] MEDS: iohexol 350 mg/mL 500 mL Btl (per mL) IV (08:53)
== END 2023-07-03 07:10 | disposition home or self-care (01) ==
LOC: RAD 07:09
PROVIDERS: PCP Nurse Practitioner; Visit Provider Nurse Practitioner
DX: R19.5 Other fecal abnormalities (principal); K59.00 Constipation, unspecified; K57.30 Diverticulosis of large intestine without perforation or abscess without bleeding; I70.0 Atherosclerosis of aorta; K55.1 Chronic vascular disorders of intestine; R93.3 Abnormal findings on diagnostic imaging of other parts of digestive tract
CPT/HCPCS: 74177; Q9967

== ENCOUNTER → 2023-07-08 11:41 | Outpatient (BNVA) | payer MEDICARE, OTHER, SELFPAY | PROVIDERS: PCP Nurse Practitioner; Visit Provider Internal Medicine Cardiovascular Disease | DX: R07.9 Chest pain, unspecified (principal); I44.0 Atrioventricular block, first degree; R00.0 Tachycardia, unspecified | CPT/HCPCS: 93005 ==

== ENCOUNTER 2023-07-08 12:04 | Inpatient (IN) | payer MEDICARE, OTHER, SELFPAY ==
[2023-07-08] VITALS (69 sets, daily range): BP systolic 96–186; BP diastolic 36–99; PULSE 31–123; RESP 6–33; TEMP 36–36.6; O2SAT 93–100; BMI 28.1
--- NOTE | 2023-07-08 12:09 | XRR_ITS ---
PROCEDURE INFORMATION: Exam: XR Chest Exam date and time: 07/08/2023 1:15 PM Age: 78 years old Clinical indication: Cough and dyspnea; Additional info: Dyspnea/cough TECHNIQUE: Imaging protocol: Radiologic exam of the chest. Views: 1 view. COMPARISON: CR XR chest 1V portable [id number] 12/14/2022 10:17 PM FINDINGS: Limitations: Overlying devices. Lungs: No consolidation. Pleural spaces: No sizable pleural effusion or pneumothorax. Heart/Mediastinum: Stable cardiomegaly. Bones/joints: Unremarkable. XR/XR chest 1V portable [id number] IMPRESSION: No acute intrathoracic findings.
--- NOTE | 2023-07-08 12:21 | ECG_ITS ---
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 Measurements Intervals [place] Rate: 41 P: 0 CO: 0 QRS: -52 QRSD: 113 T: 85 QT: 547 QTc: 455 Interpretive Statements Atrial flutter versus atrial tachycardia with slow ventricular response INCOMPLETE RIGHT BUNDLE BRANCH BLOCK [90+ ms QRS DURATION, TERMINAL R IN V1/V2, 40+ ms S IN I/aVL/V4/V5/V6] LEFT ANTERIOR FASCICULAR BLOCK [QRS AXIS <= -45, QR IN I, RS IN II] PROBABLE SEPTAL MYOCARDIAL INFARCTION , OF INDETERMINATE AGE [35 ms Q WAVE IN V1/V2] CRITICAL TEST RESULT Compared to ECG 07/08/2023 11:46:28 Left anterior fascicular block now present Sinus bradycardia no longer present Myocardial infarct finding still present Electronically Signed On 07-08-2023 14:21:30 CDT by Kike Heredia M.D. [id number]
[2023-07-08 12:42] LABS: Basophils # 0.1 10^3/uL (0.0-0.1); Basophils % 0.6 %; Eosinophils # 0.1 10^3/uL (0.0-0.8); Eosinophils % 1.1 %; Hematocrit 35.6 % (36-47); Lymphocytes # 2.1 10^3/uL (0.8-4.8); Lymphocytes % 25.4 %; Mean Corpuscular HGB Conc 31.7 g/dL (30-55); Mean Corpuscular Hemoglobin 28.2 pg (27-33); Mean Corpuscular Volume 88.8 fl (85-98); Mean Platelet Volume 10.5 fL (7.4-10.4); Monocytes # 0.7 10^3/uL (0.2-0.9); Monocytes % 9.1 %; Neutrophils # 5.15 10^3/uL (1.8-7.7); Neutrophils % 63.6 %; Nucleated Red Blood Cells % 0 %; Platelet Count 292 10^3/cmm (157-399); Red Blood Count 4.01 10^6/uL (3.85-5.65); Red Cell Distribution Width 12.3 % (12.1-15.1); White Blood Count 8.11 10^3/uL (3.29-11.43)
[2023-07-08] MEDS: DOPamine drip 400 MG/250 ML PREMIX 10.3800000000000008 MG IV (12:43)
[2023-07-08 13:01] LABS: Troponin(5th) Baseline 33 ng/L (0-10)
[2023-07-08 13:08] LABS: Alanine Aminotransferase 9 U/L (0-33); Alkaline Phosphatase 73 U/L (35-105); Anion Gap 16.6 (5-19); Aspartate Amino Transferase 12 U/L (0-32); Blood Urea Nitrogen 30 mg/dL (8-23); Calcium 9.3 mg/dL (8.5-10.5); Carbon Dioxide 26 mmol/L (22-29); Chloride 98 mmol/L (98-107); Glucose 108 mg/dL (65-115); Magnesium 3.1 mg/dL (1.7-2.3); NT Pro B Type Natriuretic Pept 1151 pg/mL (0-450); Osmolality Calculated 289 mOsm/kg (285-295); Potassium 4.6 mmol/L (3.5-5.1); Sodium 136 mmol/L (136-145); Total Bilirubin 0.3 mg/dL (0.15-1.2)
[2023-07-08 13:09] LABS: Creatinine Clr Calc Pharmacy 27.7287
--- NOTE | 2023-07-08 13:16 | W.ED.ARRPALP ---
HPI - Arrhythmia/Palpitations General: Chief Complaint: Arrhythmia/Palpitations Stated Complaint: sent from nav office, low hr Time Seen by Provider: 07/08/23 12:08 Source: patient Mode of arrival: ambulatory History of Present Illness: 78-year-old female presents emergency room from Dr. Blakely's office with severe bradycardia and hypotension. He had gone to see her for routine visit on EKG she was noted to have a rate in the upper 20s low 30s she was referred to the emergency room she has a known history of atrial for fibrillation she is currently on atenolol 12.5 mg once a day she is not recently changed the dose. She has dementia and is difficult to get any other history from her family did assist with medication history and recent symptom history no history of reported chest pain or shortness of breath. Duration: constant Severity: severe Associated symptoms: Reports anxiety; Deny cough, short of breath, syncope or vomiting Review of Systems Const: Denies: fever(s) or chills Card: Denies: chest pain or syncope Resp: Denies: dyspnea GI: Denies: abdominal pain or vomiting : Denies: dysuria, urinary frequency or urinary urgency Musc: Denies: neck pain or back pain Skin/Breast: Denies: rash Psych: Reports: anxiety PFSH ED PFSH: Medical History CAD (coronary artery disease) Dementia Enrolled in chronic care management Acquired hypothyroidism Atrial fibrillation by electrocardiogram Chronic kidney disease, stage 3 COPD with asthma Dyslipidemia Essential (primary) hypertension Type 2 diabetes mellitus Vitamin D deficiency Surgical History History of carpal tunnel release RIGHT Family History Other Dementia Diabetes Social History Smoking and tobacco/nicotine status: former use of tobacco/nicotine Second hand smoke exposure: No Alcohol intake: unknown Substance/Drug Use: unknown Adopted: No Caregiver/support person: No Lives independently: Yes Household members: family Housing: House Marital status: / service: No Current occupational status: retired Do you think of yourself as: Straight/Heterosexual Current gender identity: Female Physical Exam Const: GENERAL APPEARANCE: cooperative and comfortable ORIENTATION/CONSCIOUSNESS: Yes awake HENMT: COMMON NORMALS: normocephalic, atraumatic and hearing grossly normal bilaterally HEAD & SCALP: normocephalic and atraumatic Resp: COMMON NORMALS: normal respiratory effort, No retractions, No use of accessory muscles and clear to auscultation bilaterally AUSCULTATION: clear to auscultation bilaterally Cardio: COMMON NORMALS: regular rhythm and No murmurs present (Cardio) RHYTHM: regular rhythm GI: COMMON NORMALS: Soft to palpation and No hepatosplenomegaly present AUSCULTATION: Yes normoactive bowel sounds PALPATION: Yes Soft to palpation, No Tenderness to palpation present (GI), No Guarding due to palpation present (GI) and Yes No hepatosplenomegaly present Extremity: COMMON NORMALS: normal to inspection, capillary refill normal, no clubbing, cyanosis or edema, no calf tenderness and no pedal edema Skin: COMMON NORMALS: no rashes or lesions noted GENERAL SKIN EXAM: no rashes or lesions noted Course Vital Signs: Vital signs: Vital Signs Temperature 97.8 F 07/08/23 12:26 Pulse Rate 53 L 07/08/23 13:53 Respiratory Rate 18 07/08/23 12:26 Blood Pressure 130/60 07/08/23 13:09 Pulse Oximetry 95 07/08/23 13:53 Oxygen Delivery Me thod Room Air 07/08/23 14:09 MDM - Arrhythmia/Palpitations Medical Decision Making Heart block with cardiogenic shock hypotension bradycardia. Started on dopamine good results. Discussed with hospitalist will admit consult Dr. Blakely she had anticipated patient being admitted. Mild RED as well. Also TSH was elevated hypothyroidism will need to be treated more aggressively. Discussed kalpana with hospitalist and orders have been written. Medical Records I reviewed the patient's medical records. Lab Data I reviewed the patient's lab results. 07/08/23 12:28 07/08/23 12:28 Radiology Impressions Chest X-Ray 07/08/23 12:09 IMPRESSION: No acute intrathoracic findings. Laboratory Results WBC 8.11 10^3/uL (3.29-11.43) 07/08/23 12:28 RBC 4.01 10^6/uL (3.85-5.65) 07/08/23 12: Hgb 11.30 g/dL (11.27-16.99) 07/08/23 12: Hct 35.6 % (36-47) L 07/08/23 12: MCV 88.8 fl (85-98) 07/08/23 12: MCH 28.2 pg (27-33) 07/08/23 12: MCHC 31.7 g/dL (30-55) 07/08/23 12: RDW 12.3 % (12.1-15.1) 07/08/23 12: Plt Count 292 10^3/cmm (157-399) 07/08/23 12: MPV 10.5 fL (7.4-10.4) H 07/08/23 12: Neut % (Auto) 63.6 % 07/08/23 12: Lymph % (Auto) 25.4 % 07/08/23 12: [place] % (Auto) 9.1 % 07/08/23 12: Eos % (Auto) 1.1 % 07/08/23 12:28 Baso % (Auto) 0.6 % 07/08/23 12:28 Neut # (Auto) 5.15 10^3/uL (1.8-7.7) 07/08/23 12: Lymph # (Auto) 2.1 10^3/uL (0.8-4.8) 07/08/23 12:28 [place] # (Auto) 0.7 10^3/uL (0.2-0.9) 07/08/23 12: Eos # (Auto) 0.1 10^3/uL (0.0-0.8) 07/08/23 12: Baso # (Auto) 0.1 10^3/uL (0.0-0.1) 07/08/23 12: Nucleated RBC % (auto) 0 % 07/08/23 12: Nucleated RBCs # 0.0 /100WBC 07/08/23 12:28 Sodium 136 mmol/L (136-145) 07/08/23 12: Potassium 4.6 mmol/L (3.5-5.1) 07/08/23 12:28 Chloride 98 mmol/L (98-107) 07/08/23 12:28 Carbon Dioxide 26 mmol/L (22-29) 07/08/23 12:28 Anion Gap 16.6 (5-19) 07/08/23 12:28 BUN 30 mg/dL (8-23) H 07/08/23 12:28 Creatinine 1.4 mg/dL (0.5-0.9) H 07/08/23 12:28 GFR Calculation Not Reportable 07/08/23 12:28 Glucose 108 mg/dL (65-115) 07/08/23 12:28 Calculated Osmolality 289 mOsm/kg (285-295) 07/08/23 12:28 Calcium 9.3 mg/dL (8.5-10.5) 07/08/23 12:28 Magnesium 3.1 mg/dL (1.7-2.3) H 07/08/23 12:28 Total Bilirubin 0.3 mg/dL (0.15-1.2) 07/08/23 12:28 AST 12 U/L (0-32) 07/08/23 12:28 ALT 9 U/L (0-33) 07/08/23 12:28 Alkaline Phosphatase 73 U/L (35-105) 07/08/23 12:28 Troponin T Baseline 33 ng/L (0-10) H 07/08/23 12:28 NT-Pro-B Natriuret Pep 1151 pg/mL (0-450) H 07/08/23 12:28 Total Protein 6.0 g/dL (6.6-8.7) L 07/08/23 12:28 Albumin 4.0 g/dL (3.5-5.2) 07/08/23 12:28 Globulin 2.0 g/dL (1.3-4.6) 07/08/23 12:28 TSH 8.60 uIU/mL (0.27-4.20) H 07/08/23 12:28 All radiology interpretation(s) finalized by discharge Discharge Plan Discharge Patient Disposition: Admitted As Inpatient Admit Provider: Juanito Weldon Clinical Impression: Cardiogenic shock, RED (acute kidney injury), Hypothyroidism, Dementia Clinical Impression: (Ruled Out): High degree atrioventricular block Condition: Stable Coding Level of Care Code ED [place] [employer] Guide for [facility]
--- NOTE | 2023-07-08 13:34 | PC.NURSE ---
REPORT CALLED TO ANA ROSA YUSUF IN ICU.
[2023-07-08 15:03] LABS: Troponin 5 2HR 27.68 ng/L (0-10)
[2023-07-08 15:04] LABS: Troponin 5 2HR Delta -5.32 ABS# (0-10)
--- NOTE | 2023-07-08 15:12 | P.HP_ITS ---
Providers/Chief Complaint 2 Admitting Physician: Juanito Weldon Primary Care Provider: Marli Valenzuela, CURTIS Chief Complaint: sent from nav office, low hr History of Present Illness 78-year-old lady with history of dementia, hypothyroidism, A-fib, CKD, COPD, HLD, HTN, DM2, CAD, was brought in for evaluation from cardiology office where she was seeing Dr. Blakely. She was found to have bradycardia down as low as 20s-30s, with noted low blood pressure. On arrival to ER blood pressure as low as 90/62. She is unable to provide history. History had to obtain from her office visit and family. Review of Systems 2 Const: Reports: body aches; Denies: malaise Card: Denies: chest pain Resp: Denies: dyspnea or productive cough GI: Denies: abdominal pain, nausea, vomiting or diarrhea : Denies: flank pain Musc: Denies: back pain Skin/Breast: Denies: rash Neuro: Denies: headache(s) Medications/Allergies Home Medications Medication Instructions Recorded Confirmed Last Taken Type nitroglycerin 0.4 mg sublingual 0.4 mg sublingual Q5M PRN chest 06/30/20 07/08/23 Unknown Rx tablet pain #30 tabs atenolol 25 mg tablet 12.5 mg (1/2 x 25 mg) PO QAM #90 03/20/23 07/08/23 07/07/23 Rx tabs cholecalciferol (vitamin D3) 125 125 mcg PO DAILY #90 caps 05/14/23 07/08/23 Unknown Rx mcg (5,000 unit) capsule montelukast 10 mg tablet 10 mg PO DAILY #90 tabs 05/14/23 07/08/23 07/07/23 Rx (Singulair) potassium chloride 20 mEq 20 meq PO DAILY@12 #90 tabs 05/14/23 07/08/23 07/07/23 Rx tablet,extended release levothyroxine 50 mcg tablet 50 mcg PO DAILY #90 tabs 06/11/23 07/08/23 07/07/23 Rx magnesium hydroxide 400 mg/5 mL 15 ml PO BID PRN constipation 07/04/23 07/08/23 07/07/23 Rx oral suspension (Brink Milk of #3,780 mL Magnesia) atorvastatin 80 mg tablet 80 mg PO BEDTIME 07/08/23 07/08/23 07/07/23 History cyanocobalamin (vitamin B-12) 1,000 mcg IM Q30D 07/08/23 07/08/23 Unknown History 1,000 mcg/mL injection solution furosemide 20 mg tablet 20 mg PO DAILY PRN swelling 07/08/23 07/08/23 07/07/23 History losartan 25 mg tablet 25 mg PO QPM 07/08/23 07/08/23 07/07/23 History sucralfate 1 gram tablet (Carafate) 1 g PO QID 07/08/23 07/08/23 07/07/23 History Allergies Allergy/AdvReac Type Severity Reaction Status Date / Time aspirin Allergy Unknown Verified 07/08/23 10:55 ibuprofen [From Advil] Allergy Unknown Verified 07/08/23 10:55 insect venom Allergy ASTHMA Verified 07/08/23 10:55 Penicillins Allergy Unknown Verified 07/08/23 12:47 amlodipine AdvReac SWELLING Verified 07/08/23 10:55 PFSH Acute 2 PFSH: Medical History CAD (coronary artery disease) Dementia Enrolled in chronic care management Acquired hypothyroidism Atrial fibrillation by electrocardiogram Chronic kidney disease, stage 3 COPD with asthma Dyslipidemia Essential (primary) hypertension Type 2 diabetes mellitus Vitamin D deficiency Surgical History History of carpal tunnel release RIGHT Family History Other Dementia Diabetes Social History Smoking and tobacco/nicotine status: former use of tobacco/nicotine Second hand smoke exposure: No Alcohol intake: unknown Substance/Drug Use: unknown Adopted: No Caregiver/support person: No Lives independently: Yes Household members: family Housing: House Marital status: / service: No Current occupational status: retired Do you think of yourself as: Straight/Heterosexual Current gender identity: Female Vitals/I&O/Wt Last Vital Signs Temp 97.8 F 07/08/23 12:26 Pulse 53 L 07/08/23 13:53 Resp 18 07/08/23 12:26 BP 130/60 07/08/23 13:09 Pulse Ox 95 07/08/23 13:53 O2 Del Method Room Air 07/08/23 14:09 07/08/23 07/08/23 07/08/23 06:59 14:59 22:59 Intake Total 4.498 / 4.498 Balance 4.498 / 4.498 Weight last 48 hrs Weight 69.853 kg Weight 55.338 kg Physical Exam 2 Const: COMMON NORMALS: alert; negative for patient oriented x3 GENERAL APPEARANCE: cooperative O RIENTATION/CONSCIOUSNESS: Yes awake HENMT: COMMON NORMALS: oropharynx normal Neck/C-Spine: COMMON NORMALS: no JVD Resp: COMMON NORMALS: normal respiratory effort and clear to auscultation bilaterally AUSCULTATION: clear to auscultation bilaterally Cardio: COMMON NORMALS: no JVD, regular rhythm, S1 normal heart sound present, S2 normal heart sound present and No murmurs present (Cardio) RATE: b radycardic RHYTHM: regular rhythm HEART SOUNDS: S1 normal heart sound present and S2 normal heart sound present GI: COMMON NORMALS: Normal to inspection, nondistended, normoactive bowel sounds present, Soft to palpation and non-tender PALPATION: Yes Soft to palpation Extremity: COMMON NORMALS: no joint enlargement and no pedal edema Neuro: COMMON NORMALS: moves all extremities; negative for patient oriented x3 SENSORIUM/ORIENTATION: Yes alert Skin: COMMON NORMALS: no rashes or lesions noted GENERAL SKIN EXAM: no rashes or lesions noted Data 07/08/23 12:28 07/08/23 12:28 A&P Assessment and plan (1) High degree atrioventricular block: High degree AV block with symptomatic severe bradycardia. Feels like she was beat up . Cardiogenic shock. Continue dopamine infusion. Cardiology consultation. Monitor on telemetry. Reviewed vitals, CBC, CMP, magnesium, TSH, baseline and 2-hour troponin, EKG, chest x-ray, ER note, discussed with ER provider. Hold atenolol. With hypothyroidism, TSH elevated at 8.6, will increase levothyroxine dose to 62.5 mcg. Complete troponin and EKG series. History of atrial fibrillation. (2) Cardiogenic shock: Continue dopamine infusion. Cardiac monitoring. Hold beta-pauly. Adjust levothyroxine dose. Reassess heart rate. Cardiology consultation for high-grade AV block with severe symptomatic bradycardia. (3) Hypothyroidism: (4) RED (acute kidney injury): Reviewed BUN, creatinine, electrolytes, acid-base balance. Previously creatinine around 1. Currently 1.4. Suspect prerenal secondary to symptomatic bradycardia, cardiogenic shock. Takes Lasix. At home. Hold. Hemodynamic support as above. Reassess kidney function. Plan HTN: Currently hypotensive, monitor blood pressure. Atrial fibrillation: Not on anticoagulation, had blood in the stool. Consideration was going to be given to possibly restarting anticoagulation as per review of cardiology note from office. HLD: Continue statin. DM 2: Accu-Cheks, sliding scale insulin. COPD: Not in exacerbation Dementia Attestations 2 Medical Necessity Statement*: Admission of over 2 midnights anticipated for assessment and management of symptomatic, severe bradycardia, cardiogenic shock, high degree AV block, RED. Coding Level of Care Code Critical Care >/= 30 minutes Critical care time (in minutes): 35 The high probability of a clinically significant, sudden or life threatening deterioration, as referenced in this documentation, required my full and direct attention, intervention and personal management. The critical care time shown is in addition to time spent performing any reported separately billable procedures and includes the following: [x] Data and vital sign review and interpretation [x ] Patient assessment, examination and intervention [x] Medication orders and management [x] Patient/Family updates as able [x] Care Coordination and Documentation. Diagnoses High degree atrioventricular block I44.39 Cardiogenic shock R57.0 Hypothyroidism E03.9 RED (acute kidney injury) N17.9
[2023-07-08] MEDS: sodium chloride 0.9% 1,000 ML 100 ML IV (15:46)
[2023-07-08] MEDS: heparin 5,000 unit/mL INJ 1 mL 5000 UNIT SUBCUT (15:47)
--- NOTE | 2023-07-08 15:49 | ECG_ITS ---
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 Measurements Intervals [place] Rate: 52 P: -7 [place]: 184 QRS: -60 QRSD: 126 T: 78 QT: 453 QTc: 423 Interpretive Statements SINUS BRADYCARDIA with a first-degree AV block RIGHT BUNDLE BRANCH BLOCK [120+ ms QRS DURATION, UPRIGHT V1, 40+ ms S IN I/aVL/V4/V5/V6] LEFT ANTERIOR FASCICULAR BLOCK [QRS AXIS <= -45, QR IN I, RS IN II] POSSIBLE SEPTAL MYOCARDIAL INFARCTION , OF INDETERMINATE AGE [30 ms Q WAVE IN V1/V2] Compared to ECG 07/08/2023 12:21:29 Right bundle-branch block now present Atrial flutter no longer present Incomplete right bundle-branch block no longer present Myocardial infarct finding still present Electronically Signed On 07-09-2023 23:09:02 CDT by Sherry Blakely M.D. [id number]
[2023-07-08 17:54] LABS: Glucose Point of Care 115 mg/dL (70-110)
--- NOTE | 2023-07-08 18:09 | ECG_ITS ---
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 Measurements Intervals [place] Rate: 48 P: -20 [place]: 221 QRS: -62 QRSD: 123 T: 75 QT: 495 QTc: 443 Interpretive Statements SINUS BRADYCARDIA WITH FIRST DEGREE AV BLOCK RIGHT BUNDLE BRANCH BLOCK [120+ ms QRS DURATION, UPRIGHT V1, 40+ ms S IN I/aVL/V4/V5/V6] LEFT ANTERIOR FASCICULAR BLOCK [QRS AXIS <= -45, QR IN I, RS IN II] POSSIBLE SEPTAL MYOCARDIAL INFARCTION , OF INDETERMINATE AGE [30 ms Q WAVE IN V1/V2] Compared to ECG 07/08/2023 15:49:41 First degree AV block now present Myocardial infarct finding still present Electronically Signed On 07-09-2023 23:10:13 CDT by Sherry Blakely M.D. [id number]
[2023-07-08 18:42] LABS: Add Urine Microscopic? NO; Charge for UA Resulting for Rev
[2023-07-08 18:51] LABS: Bilirubin Urine Neg (Negative); Blood Urine Neg (Negative); Glucose Urine UA Norm (Normal); Ketones Urine Negative (Negative); Leukocyte Esterase Urine Negative (Negative); Nitrate Urine Negative (Negative); Protein Urine Neg (Negative); Sulfosalicylic Acid Urine Negative (Negative); Urine Appearance Clear (CLEAR); Urine Color Light yellow (Yellow); Urobilinogen Urine Norm (Negative); pH Urine 8 (5-7)
--- NOTE | 2023-07-08 19:17 | P.CONIM_ITS ---
Providers/Reason For Consult 2 Consulting Physician/Specialty*: JESSICA Blakely MD/cardiology Reason for Consult*: Patient symptomatic bradycardia/hypotension Requesting Physician: Dr. Weldon Attending Physician: Juanito Weldon Primary Care Provider: CURTIS Dumas History of Present Illness History of Present Illness Shaila Johnson is a 78 year old female with a history of atherosclerotic heart disease, atrial fibrillation, GI bleed, chronic kidney disease, presented with generalized weakness/dizziness. She was found to have a heart rate of 29 by EKG. Cardiology consult is requested for further evaluation recommendations This patient is known to have intermittent atrial fibrillation, mild coronary artery disease by angiogram, bradycardia, hypertension, hypothyroidism, type 2 diabetes, dyslipidemia, dementia. She present to our office today with complaints of generalized weakness/lethargy/dizziness. She was complaining of dizziness especially when she tried to stand up. No syncopal episodes. She has no chest pain or any unusual shortness of breath. She has been taking Xarelto for the atrial fibrillation. However she has been complaining of constipation and melanotic stools. For that reason, she was taken off the Xarelto. She is undergoing some GI workup. She is a very poor historian. Her [id number] accompanied her to the office. She is the primary caregiver at home. Denies any other specific complaints at this time. This patient had a cardiac catheterization in 2019. She was found to have mild disease in the left main artery. 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 The LAD and the circumflex artery were found no significant lesions. She was found to be somewhat hypotensive with a systolic blood pressure in the 90s. She was started on IV dopamine and the heart rate seems to be coming up. She has been taking atenolol at home. Review of Systems 2 Narrative: CONSTITUTIONAL: No fever or chills. Generalized weakness/lethargy. EYES: No blurring of vision or other visual disturbances lately. ENT: No hoarseness of voice, auditory disturbances or sore throat. CARDIOVASCULAR: As mentioned above. RESPIRATORY: No significant cough. GASTROINTESTINAL: No hematemesis or melena. GENITOURINARY: No dysuria or hematuria. INTEGUMENTARY: No skin rashes or history of skin cancer. NEURO: History of dementia PSYCHIATRIC: No history of psychosis or major depression. HEMATOLOGIC: History of anemia ENDOCRINE: Type 2 diabetes and hypothyroidism MUSCULOSKELETAL: No recent joint pain or swelling. ALLERGY/IMMUNOLOGY: As mentioned above. Medications/Allergies Home Medications Medication Instructions Recorded Confirmed Last Taken Type nitroglycerin 0.4 mg sublingual 0.4 mg sublingual Q5M PRN chest 06/30/20 07/08/23 Unknown Rx tablet pain #30 tabs atenolol 25 mg tablet 12.5 mg (1/2 x 25 mg) PO QAM #90 03/20/23 07/08/23 07/07/23 Rx tabs cholecalciferol (vitamin D3) 125 125 mcg PO DAILY #90 caps 05/14/23 07/08/23 Unknown Rx mcg (5,000 unit) capsule montelukast 10 mg tablet 10 mg PO DAILY #90 tabs 05/14/23 07/08/23 07/07/23 Rx (Singulair) potassium chloride 20 mEq 20 meq PO DAILY@12 #90 tabs 05/14/23 07/08/23 07/07/23 Rx tablet,extended release levothyroxine 50 mcg tablet 50 mcg PO DAILY #90 tabs 06/11/23 07/08/23 07/07/23 Rx magnesium hydroxide 400 mg/5 mL 15 ml PO BID PRN constipation 07/04/23 07/08/23 07/07/23 Rx oral suspension (Brink Milk of #3,780 mL Magnesia) atorvastatin 80 mg tablet 80 mg PO BEDTIME 07/08/23 07/08/23 07/07/23 History cyanocobalamin (vitamin B-12) 1,000 mcg IM Q30D 07/08/23 07/08/23 Unknown History 1,000 mcg/mL injection solution furosemide 20 mg tablet 20 mg PO DAILY PRN swelling 07/08/23 07/08/23 07/07/23 History losartan 25 mg tablet 25 mg PO QPM 07/08/23 07/08/23 07/07/23 History sucralfate 1 gram tablet (Carafate) 1 g PO QID 07/08/23 07/08/23 07/07/23 History Allergies Allergy/AdvReac Type Severity Reaction Status Date / Time aspirin Allergy Unknown Verified 07/08/23 10:55 ibuprofen [From Advil] Allergy Unknown Verified 07/08/23 10:55 insect venom Allergy ASTHMA Verified 07/08/23 10:55 Penicillins Allergy Unknown Verified 07/08/23 12:47 amlodipine AdvReac SWELLING Verified 07/08/23 10:55 Current Medications Generic Name Dose Route Start Last Admin Trade Name Freq PRN Reason Stop Dose Admin Heparin Sodium (Porcine) 5,000 unit 07/08/23 14:45 07/08/23 15:47 Heparin 5,000 Unit/Ml Inj 1 Ml SUBCUT 5,000 unit Q12H SOBIA Administration Dopamine HCl/Dextrose 400 mg in 250 mls @ 10.376 mls/hr 07/08/23 12:15 07/08/23 19:00 Intropin Drip IV 5 mcg/kg/min CONT SOBIA 10.38 mls/hr Titration Protocol 5 MCG/KG/MIN Sodium Chloride 1,000 mls @ 100 mls/hr 07/08/23 14:35 07/08/23 15:46 Sodium Chloride 0.9% IV 100 mls/hr .Q10H SOBIA Administration Insulin Human Lispro 0 unit 07/08/23 15:30 07/08/23 17:52 Insulin Lispro 100 Unit/1 Ml SUBCUT Not Given Q6H SOBIA Protocol PFSH Acute 2 PFSH: Medical History CAD (coronary artery disease) Dementia Enrolled in chronic care management Acquired hypothyroidism Atrial fibrillation by electrocardiogram Chronic kidney disease, stage 3 COPD with asthma Dyslipidemia Essential (primary) hypertension Type 2 diabetes mellitus Vitamin D deficiency Surgical History History of carpal tunnel release RIGHT Family History Other Dementia Diabetes Social History Smoking and tobacco/nicotine status: former use of tobacco/nicotine Second hand smoke exposure: No Alcohol intake: unknown Substance/Drug Use: unknown Adopted: No Caregiver/support person: No Lives independently: Yes Household members: family Housing: House Marital status: / service: No Current occupational status: retired Do you think of yourself as: Straight/Heterosexual Current gender identity: Female Vitals/I&O/Wt Last Vital Signs Temp 96.8 F L 07/08/23 18:00 Pulse 48 L 07/08/23 19:00 Resp 16 07/08/23 19:00 BP 156/64 07/08/23 19:00 Pulse Ox 98 07/08/23 19:00 O2 Del Method Room Air 07/08/23 14:09 07/08/23 07/08/23 07/08/23 06:59 14:59 22:59 Intake Total 4.498 / 4.498 211.026 / 215.524 Output Total 500 / 500 Balance 4.498 / 4.498 -288.974 / -284.476 Weight last 48 hrs Weight 154 lb Weight 122 lb Physical Exam 2 Narrative: GENERAL: The patient is alert and oriented times three. Not in any acute distress. HEENT: No significant pallor, icterus or lymphadenopathy.Oral cavity: There are no mucous membrane lesions. NECK: Trachea appears to be central. No masses noted. No JVD or thyromegaly appreciated. RESPIRATORY: Chest is symmetrical. No intercostals muscle retraction or any accessory muscle activation. There is no chest wall tenderness. Breath sounds are heard bilaterally. No rales or rhonchi heard. No evidence of any consolidation. BREASTS: Deferred. HEART: The heart sounds are normal. No S3 or S4. Short systolic murmur in the lower sternal border. No diastolic murmurs. No pericardial rub ABDOMEN: No vessel pulsations or distention. No tenderness. No organomegaly appreciated. Bowel sounds are normally heard. : Deferred. RECTAL: Deferred. LYMPHATIC: No lymphadenopathy noted in the neck. EXTREMITIES: No edema or cyanosis. No clubbing. MUSCULOSKELETAL: No acute joint deformities or swelling SKIN: There are no significant rashes or ecchymosis NEUROPSYCHIATRIC: The patient is alert and oriented x3. Appears to be in a good mood. No tremors or rigidity noted. Data 07/08/23 12:28 07/08/23 12:28 Other Labs: Laboratory Last Values WBC 8.11 10^3/uL (3.29-11.43) 07/08/23 12:28 RBC 4.01 10^6/uL (3.85-5.65) 07/08/23 12:28 Hgb 11.30 g/dL (11.27-16.99) 07/08/23 12: Hct 35.6 % (36-47) L 07/08/23 12: MCV 88.8 fl (85-98) 07/08/23 12: MCH 28.2 pg (27-33) 07/08/23 12: MCHC 31.7 g/dL (30-55) 07/08/23 12: RDW 12.3 % (12.1-15.1) 07/08/23 12:28 Plt Count 292 10^3/cmm (157-399) 07/08/23 12: MPV 10.5 fL (7.4-10.4) H 07/08/23 12: Neut % (Auto) 63.6 % 07/08/23 12: Lymph % (Auto) 25.4 % 07/08/23 12: Harmon % (Auto) 9.1 % 07/08/23 12: Eos % (Auto) 1.1 % 07/08/23 12: Baso % (Auto) 0.6 % 07/08/23 12:28 Neut # (Auto) 5.15 10^3/uL (1.8-7.7) 07/08/23 12: Lymph # (Auto) 2.1 10^3/uL (0.8-4.8) 07/08/23 12:28 Harmon # (Auto) 0.7 10^3/uL (0.2-0.9) 07/08/23 12: Eos # (Auto) 0.1 10^3/uL (0.0-0.8) 07/08/23 12:28 Baso # (Auto) 0.1 10^3/uL (0.0-0.1) 07/08/23 12:28 Nucleated RBC % (auto) 0 % 07/08/23 12: Nucleated RBCs # 0.0 /100WBC 07/08/23 12:28 Sodium 136 mmol/L (136-145) 07/08/23 12:28 Potassium 4.6 mmol/L (3.5-5.1) 07/08/23 12:28 Chloride 98 mmol/L (98-107) 07/08/23 12:28 Carbon Dioxide 26 mmol/L (22-29) 03/11/24 12:28 Anion Gap 16.6 (5-19) 07/08/23 12:28 BUN 30 mg/dL (8-23) H 07/08/23 12:28 Creatinine 1.4 mg/dL (0.5-0.9) H 07/08/23 12:28 GFR Calculation Not Reportable 07/08/23 12:28 Glucose 108 mg/dL (65-115) 07/08/23 12:28 POC Glucose 115 mg/dL (70-110) H 07/08/23 17:50 Calculated Osmolality 289 mOsm/kg (285-295) 07/08/23 12:28 Calcium 9.3 mg/dL (8.5-10.5) 07/08/23 12:28 Magnesium 3.1 mg/dL (1.7-2.3) H 07/08/23 12:28 Total Bilirubin 0.3 mg/dL (0.15-1.2) 07/08/23 12:28 AST 12 U/L (0-32) 07/08/23 12:28 ALT 9 U/L (0-33) 07/08/23 12:28 Alkaline Phosphatase 73 U/L (35-105) 07/08/23 12:28 Troponin T Baseline 33 ng/L (0-10) H 07/08/23 12:28 Troponin T 120 Minute 27.68 ng/L (0-10) H 07/08/23 14:34 Delta Troponin T -5.32 ABS# (0-10) L 07/08/23 14:34 Troponin T Hi Sens 6Hr 30.65 ng/L (0-10) H 07/08/23 19:07 Troponin T Hi Sens 6Hr Delta -2.35 ng/L (0-12) L 07/08/23 19:07 NT-Pro-B Natriuret Pep 1151 pg/mL (0-450) H 07/08/23 12:28 Total Protein 6.0 g/dL (6.6-8.7) L 07/08/23 12:28 Albumin 4.0 g/dL (3.5-5.2) 07/08/23 12:28 Globulin 2.0 g/dL (1.3-4.6) 07/08/23 12:28 TSH 8.60 uIU/mL (0.27-4.20) H 07/08/23 12:28 Urine Color Light yellow (Yellow) 07/08/23 18:35 Urine Appearance Clear (CLEAR) 07/08/23 18:35 Urine pH 8 (5-7) H 07/08/23 18:35 Ur Specific Watson 1.010 (1.005-1.030) 07/08/23 18:35 Urine Protein Neg (Negative) 07/08/23 18:35 Urine Glucose (UA) Norm (Normal) 07/08/23 18:35 Urine Ketones Negative (Negative) 07/08/23 18:35 Urine Blood Neg (Negative) 07/08/23 18:35 Urine Nitrate Negative (Negative) 07/08/23 18:35 Urine Bilirubin Neg (Negative) 07/08/23 18:35 Prot Sulfosalicylic Acd Negative (Negative) 07/08/23 18:35 Urine Urobilinogen Norm mg/dL (Negative) 07/08/23 18:35 Ur Leukocyte Esterase Negative (Negative) 07/08/23 18:35 EKG 1: My Interpretation: Sinus bradycardia with a heart rate of 29 bpm. Incomplete right bundle branch block pattern. Some features of LVH. Left axis deviation. EKG 2: My Interpretation: Sinus bradycardia with a first-degree AV block. Heart rate of 48 bpm. Left anterior fascicular block. Right bundle branch block. 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 Normal coronary arteries. - Coronary angiography reveals right coronary artery dominance. She has an exceedingly unusual takeoff of the right coronary artery. This comes off the left coronary cusp just superior to the left main coronary artery. The right coronary artery is normal. Left main coronary artery reveals a 20% stenosis in the midportion. The circumflex and LAD are normal. No left ventriculogram was done because of renal insufficiency. 02/26/19: Echo - Normal left ventricular size and systolic function, EF 60 %. - No regional wall motion abnormalities. - Mild left ventricular hypertrophy. - Grade I/IV diastolic dysfunction (abnormal relaxation filling pattern), normal to mildly elevated filling pressures. - Features of aortic valve sclerosis - Mild left atrial enlargement - Trace tricuspid valve regurgitation. - Normal estimated pulmonary artery peak systolic pressure There is no pericardial effusion. There are no intracardiac masses. No previous study is available for comparison. A&P Assessment and plan (1) Symptomatic bradycardia: This patient has a history of bradycardia. She is seems to have some features of sinus kelton dysfunction. The beta-pauly might be making it worse. She also was found to be somewhat hypothyroid, which also might be a contributing factor. At this point, we may hold off on the atenolol. Also may increase the thyroid supplement to 0.120 mg daily. (2) Hypotension: This could be multifactorial. The bradycardia along with poor fluid intake could be the major contributing factor. Adequate IV hydration would be appropriate. She has no evidence of any myocardial injury at this time. Patient is on IV dopamine. This may be titrated for a mean arterial pressure above 70 and the heart rate above 50. Qualifiers: Hypotension type: other hypotension type Qualified Code(s): I95.89 - Other hypotension (3) Intermittent atrial fibrillation: Patient is currently in sinus rhythm. She has been on oral anticoagulation. Because of the GI bleed, it is on hold. (4) GI bleed: Etiology is not clear. This needs to be further evaluated. 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 Plan I may go ahead and do an echocardiogram to evaluate LV function or worsening of the pathology. Based on the results of the above tests and the patient's clinical progress, further recommendations will be made. Thank you for the opportunity to evaluate this patient and make these recommendations Consult Attestations 2 Medical Necessity Statement: Patient requires continued hospital stay for close monitoring and further management Coding Level of Care Code 12047 Diagnoses Symptomatic bradycardia R00.1 Other specified hypotension I95.89 Hypotension type: other hypotension type Intermittent atrial fibrillation I48.0 Gastrointestinal hemorrhage with melena K92.1 GI bleed type/associated pathology: melena Type 2 diabetes mellitus without complication, with long-term current use of insulin E11.9; Z79.4 Diabetes mellitus terminal manager insulin use: with terminal manager use Diabetes mellitus complication status: without complication Acquired hypothyroidism E03.9
[2023-07-08 19:43] LABS: Troponin 5 6HR 30.65 ng/L (0-10)
[2023-07-08 19:45] LABS: Troponin 5 6HR Delta -2.35 ng/L (0-12)
[2023-07-08 21:20] LABS: Glucose Point of Care 105 mg/dL (70-110)
[2023-07-08] MEDS: atorvastatin 40 mg Tablet 80 MG PO (21:21)
[2023-07-08] MEDS: levothyroxine 125 mcg Tablet PO (21:23)
--- NOTE | 2023-07-08 21:27 | XRR_ITS ---
PROCEDURE INFORMATION: Exam: XR Abdomen Exam date and time: 07/08/2023 9:24 PM Age: 78 years old Clinical indication: Abdominal pain; Colic; Additional info: Constipation TECHNIQUE: Imaging protocol: Radiologic exam of the abdomen. Views: Frontal supine view of the abdomen. 1 View. COMPARISON: CT abdomen pelvis w con* [id number] 07/03/2023 8:41 AM FINDINGS: Gastrointestinal tract: Normal. No bowel dilation. Bones/joints: Unremarkable. XR/XR KUB portable [id number] IMPRESSION: No acute findings.
[2023-07-08] MEDS: acetaminophen 325 mg Tablet 650 MG PO (23:21)
[2023-07-09] VITALS (49 sets, daily range): BP systolic 115–186; BP diastolic 37–100; PULSE 38–80; RESP 10–23; TEMP 36–36.8; O2SAT 93–100; BMI 26.9
[2023-07-09] MEDS: sodium chloride 0.9% 1,000 ML 100 ML IV ×2 (02:57→15:23)
[2023-07-09 03:21] LABS: Glucose Point of Care 102 mg/dL (70-110)
[2023-07-09] MEDS: heparin 5,000 unit/mL INJ 1 mL 5000 UNIT SUBCUT ×2 (03:22→15:22)
[2023-07-09 05:49] LABS: Basophils # 0.1 10^3/uL (0.0-0.1); Basophils % 0.8 %; Eosinophils # 0.1 10^3/uL (0.0-0.8); Eosinophils % 1.7 %; Hematocrit 33.6 % (36-47); Lymphocytes # 1.9 10^3/uL (0.8-4.8); Mean Corpuscular HGB Conc 31.3 g/dL (30-55); Mean Corpuscular Hemoglobin 28.2 pg (27-33); Mean Corpuscular Volume 90.1 fl (85-98); Mean Platelet Volume 10.5 fL (7.4-10.4); Monocytes # 0.7 10^3/uL (0.2-0.9); Monocytes % 9.3 %; Neutrophils # 4.41 10^3/uL (1.8-7.7); Neutrophils % 61.9 %; Nucleated Red Blood Cells % 0 %; Platelet Count 250 10^3/cmm (157-399); Red Blood Count 3.73 10^6/uL (3.85-5.65); Red Cell Distribution Width 12.1 % (12.1-15.1); White Blood Count 7.12 10^3/uL (3.29-11.43)
[2023-07-09 06:23] LABS: Anion Gap 13.9 (5-19); Blood Urea Nitrogen 22 mg/dL (8-23); Calcium 7.9 mg/dL (8.5-10.5); Carbon Dioxide 22 mmol/L (22-29); Chloride 104 mmol/L (98-107); Creatinine Clr Calc Pharmacy 38.4118; Glucose 104 mg/dL (65-115); Osmolality Calculated 286 mOsm/kg (285-295); Potassium 3.9 mmol/L (3.5-5.1); Sodium 136 mmol/L (136-145)
[2023-07-09 09:19] LABS: Glucose Point of Care 105 mg/dL (70-110)
[2023-07-09] MEDS: montelukast sodium 10 mg Tablet PO (09:46)
[2023-07-09] MEDS: levothyroxine 125 mcg Tablet PO (09:46)
[2023-07-09] MEDS: pantoprazole DR 40 mg Tablet PO (09:46)
[2023-07-09 15:33] LABS: Glucose Point of Care 95 mg/dL (70-110)
--- NOTE | 2023-07-09 16:46 | PC.NURSE ---
Patient called nurse into room to discuss goals of care. She states that She doesn't want us to continue doing everything that we are doing. Patient stated that she knows she has dementia, but she also has moments of clarity and she is having a moment of clarity now. SHe says I am 78 years old, I have dementia, and i'm confused all of the time. I don't want to keep doing all of this. Im not saying i want to , but i don't want to keep going through all of this to stay alive. If it's my time to go, i want to go. I have tried to tell people this, but nobody listens . Nurse explained to the patient that we try to have patient's involved in the decision making process as much as possible, but with her dementia her son is also involved. And that it sounds like she and her son will have to have a discussion, perhaps with the physician present, to discuss new goals of care and available interventions. Nurse alerted Dr vidales to statements made by patient. About 5 minutes after having this discussion, this nurse entered the room again and the patient had forgotten she had the above conversation and repeated the same concerns.
--- NOTE | 2023-07-09 17:09 | P.PN_ITS ---
Subjective 2 Subjective: Patient is feeling better. Heart rate stays in the upper 40s. No fever. No abdominal pain. No chest pain or shortness of breath. Still on dopamine of 5 mics per KG per minute. The blood pressure was staying in the 140s and 150s Medications: Medication Review Details: Current Medications Acetaminophen (Acetaminophen 325 Mg Tablet) 650 mg PO Q6H PRN PRN Reason: Mild/Mod Pain Or Temp >/= 101 Last Admin: 07/08/23 23:21 Dose: 650 mg Atorvastatin Calcium (Atorvastatin 40 Mg Tablet) 80 mg PO BEDTIME SOBIA Last Admin: 07/08/23 21:21 Dose: 80 mg Heparin Sodium (Porcine) (Heparin 5,000 Unit/Ml Inj 1 Ml) 5,000 unit SUBCUT Q12H SOBIA Last Admin: 07/09/23 15:22 Dose: 5,000 unit Dopamine HCl/Dextrose (Intropin Drip) 400 mg in 250 mls @ 10.376 mls/hr IV CONT SOBIA; Protocol Last Titration: 07/09/23 13:40 Dose: 0 mcg/kg/min, 0 mls/hr Sodium Chloride (Sodium Chloride 0.9%) 1,000 mls @ 100 mls/hr IV .Q10H SOBIA Last Admin: 07/09/23 15:23 Dose: 100 mls/hr Dextrose (D5w) 500 mls @ 0 mls/hr IV ONCE PRN; Protocol PRN Reason: Adult Acute Hypoglycemia Prot Dextrose (D10w) 125 mls @ 750 mls/hr IV PRN PRN; Protocol PRN Reason: Adult Acute Hypoglycemia Nursing Protocol Dextrose (D10w) 250 mls @ 1,000 mls/hr IV PRN PRN; Protocol PRN Reason: Adult Acute Hypoglycemia Nursing Protocol Insulin Human Lispro (Insulin Lispro 100 Unit/1 Ml) 0 unit SUBCUT Q6H SOBIA; Protocol Last Admin: 07/09/23 15:22 Dose: Not Given Levothyroxine Sodium (Levothyroxine 125 Mcg Tablet) 125 mcg PO DAILY [facility] Last Admin: 07/09/23 09:46 Dose: 125 mcg Montelukast Sodium (Montelukast Sodium 10 Mg Tablet) 10 mg PO DAILY [facility] Last Admin: 07/09/23 09:46 Dose: 10 mg Ondansetron HCl (Ondansetron 2 Mg/Ml Sdv 2 Ml) 4 mg IVP Q6H PRN PRN Reason: NAUSEA AND VOMITING Pantoprazole Sodium (Pantoprazole Dr 40 Mg Tablet) 40 mg PO DAILY SOBIA Last Admin: 07/09/23 09:46 Dose: 40 mg Vitals/I&O/Wt Last Vital Signs Temp 96.8 F L 07/09/23 13:30 Pulse 47 L 07/09/23 15:00 Resp 10 L 07/09/23 15:00 BP 138/54 07/09/23 15:00 Pulse Ox 100 07/09/23 15:00 O2 Del Method Room Air 07/09/23 15:00 07/09/23 07/09/23 07/09/23 06:59 14:59 22:59 Intake Total 1016.868 / 2036.815 8372.143 / 1692.143 Output Total 600 / 1100 700 / 700 Balance 416.868 / 171.317 992.143 / 992.143 Weight last 48 hrs Weight 147 lb 7 oz Weight 154 lb Weight 122 lb Physical Exam 2 Narrative: GENERAL: The patient is alert and oriented times three. Not in any acute distress. HEENT: No significant pallor, icterus or lymphadenopathy.Oral cavity: There are no mucous membrane lesions. NECK: Trachea appears to be central. No masses noted. No JVD or thyromegaly appreciated. RESPIRATORY: Chest is symmetrical. No intercostals muscle retraction or any accessory muscle activation. There is no chest wall tenderness. Breath sounds are heard bilaterally. No rales or rhonchi heard. No evidence of any consolidation. BREASTS: Deferred. HEART: The heart sounds are normal. No S3 or S4. Short systolic murmur in the lower sternal border. No diastolic murmurs. No pericardial rub ABDOMEN: No vessel pulsations or distention. No tenderness. No organomegaly appreciated. Bowel sounds are normally heard. : Deferred. RECTAL: Deferred. LYMPHATIC: No lymphadenopathy noted in the neck. EXTREMITIES: No edema or cyanosis. No clubbing. MUSCULOSKELETAL: No acute joint deformities or swelling SKIN: There are no significant rashes or ecchymosis NEUROPSYCHIATRIC: The patient is alert and oriented x3. Appears to be in a good mood. No tremors or rigidity noted. Data 07/09/23 05:34 07/09/23 05:34 Other Labs: Laboratory Last Values WBC 7.12 10^3/uL (3.29-11.43) 07/09/23 05:34 RBC 3.73 10^6/uL (3.85-5.65) L 07/09/23 05:34 Hgb 10.50 g/dL (11.27-16.99) L 07/09/23 05:34 Hct 33.6 % (36-47) L 07/09/23 05:34 MCV 90.1 fl (85-98) 07/09/23 05:34 MCH 28.2 pg (27-33) 07/09/23 05:34 MCHC 31.3 g/dL (30-55) 07/09/23 05:34 RDW 12.1 % (12.1-15.1) 07/09/23 05:34 Plt Count 250 10^3/cmm (157-399) 07/09/23 05:34 MPV 10.5 fL (7.4-10.4) H 07/09/23 05:34 Neut % (Auto) 61.9 % 07/09/23 05:34 Lymph % (Auto) 26.0 % 07/09/23 05:34 [place] % (Auto) 9.3 % 07/09/23 05:34 Eos % (Auto) 1.7 % 07/09/23 05:34 Baso % (Auto) 0.8 % 07/09/23 05:34 Neut # (Auto) 4.41 10^3/uL (1.8-7.7) 07/09/23 05:34 Lymph # (Auto) 1.9 10^3/uL (0.8-4.8) 07/09/23 05:34 [place] # (Auto) 0.7 10^3/uL (0.2-0.9) 07/09/23 05:34 Eos # (Auto) 0.1 10^3/uL (0.0-0.8) 07/09/23 05:34 Baso # (Auto) 0.1 10^3/uL (0.0-0.1) 07/09/23 05:34 Nucleated RBC % (auto) 0 % 07/09/23 05:34 Nucleated RBCs # 0.0 /100WBC 07/09/23 05:34 Sodium 136 mmol/L (136-145) 07/09/23 05:34 Potassium 3.9 mmol/L (3.5-5.1) 07/09/23 05:34 Chloride 104 mmol/L (98-107) 07/09/23 05:34 Carbon Dioxide 22 mmol/L (22-29) 07/09/23 05:34 Anion Gap 13.9 (5-19) 07/09/23 05:34 BUN 22 mg/dL (8-23) 07/09/23 05:34 Creatinine 1.1 mg/dL (0.5-0.9) H 07/09/23 05:34 GFR Calculation Not Reportable 07/09/23 05:34 Glucose 104 mg/dL (65-115) 07/09/23 05:34 POC Glucose 95 mg/dL (70-110) 07/09/23 15:22 Calculated Osmolality 286 mOsm/kg (285-295) 07/09/23 05:34 Calcium 7.9 mg/dL (8.5-10.5) L 07/09/23 05:34 Magnesium 3.1 mg/dL (1.7-2.3) H 07/08/23 12:28 Total Bilirubin 0.3 mg/dL (0.15-1.2) 07/08/23 12:28 AST 12 U/L (0-32) 07/08/23 12:28 ALT 9 U/L (0-33) 07/08/23 12:28 Alkaline Phosphatase 73 U/L (35-105) 07/08/23 12:28 Troponin T Baseline 33 ng/L (0-10) H 07/08/23 12:28 Troponin T 120 Minute 27.68 ng/L (0-10) H 07/08/23 14:34 Delta Troponin T -5.32 ABS# (0-10) L 07/08/23 14:34 Troponin T Hi Sens 6Hr 30.65 ng/L (0-10) H 07/08/23 19:07 Troponin T Hi Sens 6Hr Delta -2.35 ng/L (0-12) L 07/08/23 19:07 NT-Pro-B Natriuret Pep 1151 pg/mL (0-450) H 07/08/23 12:28 Total Protein 6.0 g/dL (6.6-8.7) L 07/08/23 12:28 Albumin 4.0 g/dL (3.5-5.2) 07/08/23 12:28 Globulin 2.0 g/dL (1.3-4.6) 07/08/23 12:28 TSH 8.60 uIU/mL (0.27-4.20) H 07/08/23 12:28 Urine Color Light yellow (Yellow) 07/08/23 18:35 Urine Appearance Clear (CLEAR) 07/08/23 18:35 Urine pH 8 (5-7) H 07/08/23 18:35 Ur Specific [employer] 1.010 (1.005-1.030) 07/08/23 18:35 Urine Protein Neg (Negative) 07/08/23 18:35 Urine Glucose (UA) Norm (Normal) 07/08/23 18:35 Urine Ketones Negative (Negative) 07/08/23 18:35 Urine Blood Neg (Negative) 07/08/23 18:35 Urine Nitrate Negative (Negative) 07/08/23 18:35 Urine Bilirubin Neg (Negative) 07/08/23 18:35 Prot Sulfosalicylic Acd Negative (Negative) 07/08/23 18:35 Urine Urobilinogen Norm mg/dL (Negative) 07/08/23 18:35 Ur Leukocyte Esterase Negative (Negative) 07/08/23 18:35 A&P Assessment and plan (1) Symptomatic bradycardia: This patient has a history of bradycardia. She is seems to have some features of sinus kelton dysfunction. The beta-pauly might be making it worse. She also was found to be somewhat hypothyroid, which also might be a contributing factor. At this point, we may hold off on the atenolol. Also may increase the thyroid supplement to 0.120 mg daily. Continue with the dopamine of 5 mics per KG per minute and gradually taper down the dose, to maintain the heart rate above 50 (2) Hypotension: Patient is currently hypertensive. Will be titrating the dose of the dopamine to maintain heart rate above 50 Qualifiers: Hypotension type: other hypotension type Qualified Code(s): I95.89 - Other hypotension (3) Intermittent atrial fibrillation: Patient is currently in sinus rhythm. She has been on oral anticoagulation. Because of the GI bleed, it is on hold. (4) GI bleed: Etiology is not clear. This needs to be further evaluated. 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 Continue the current dose of 125 mcg daily Plan Since the patient was taking atenolol. It might take up to 48 hours for the effect to be completely weaned off. Will consider tapering off the dopamine tomorrow. Consider antihypertensive medication, if the systolic blood pressure stays above 140 Attestations 2 Medical Necessity Statement*: Patient requires continued hospital stay for close monitoring and further management Coding Level of Care Code Acute Code for Chg Fwd Diagnoses Symptomatic bradycardia R00.1 Other specified hypotension I95.89 Hypotension type: other hypotension type Intermittent atrial fibrillation I48.0 Gastrointestinal hemorrhage with melena K92.1 GI bleed type/associated pathology: melena Type 2 diabetes mellitus without complication, with long-term current use of insulin E11.9; Z79.4 Diabetes mellitus half-way insulin use: with half-way use Diabetes mellitus complication status: without complication Acquired hypothyroidism E03.9
--- NOTE | 2023-07-09 19:24 | PC.NURSE ---
SHift SUmmary: Uneventful shift. Dopamine has been titrated off. Heart rate is a little variable, but mostly in the 50's. Hard to accurately and regular check vitals as patient has been very uncooperative with monitoring devices, frequently pulling them off or refusing assessment. Occasional spot checks of bp and spo2 were performed. Frequent reorientation required. 3 voids and 1 BM today.
--- NOTE | 2023-07-09 20:36 | USCV_ITS ---
Shaila Johnson Age: 78 Gender: F : 1945 Exam Date: 07/09/2023 02:01 Ordering Phys: Sherry Blakely MD ([email or web address]) Technologist: RENA Exam Location: [facility] – [place] Indication: bradycardia / hypotension. BP: 156 / 64 HR: 44 Rhythm: Sinus bradycardia Technical Quality: Adequate MEASUREMENTS (Male / Female) Normal Values 2D ECHO LV Diastolic Diameter PLAX 4.1 cm 4.2 - 5.9 / 3.9 - 5.3 cm IVS Diastolic Thickness 1.3 cm 0.6 - 1.0 / 0.6 - 0.9 cm IVS Systolic Thickness 1.4 cm LVPW Diastolic Thickness 1.3 cm 0.6 - 1.0 / 0.6 - 0.9 cm LVPW Systolic Thickness 1.2 cm LVOT Diameter 1.6 cm LV Ejection Fraction 2D Teich 60.1 % LV Ejection Fraction MOD 2C 54.4 % LV Ejection Fraction 2C AL 54.9 % LA Diameter 3.5 cm Aorta at Sinotubular Diameter 2.1 cm IVC Diameter 0.8 cm M-MODE LA Ao Ratio MM 1.2 AV Cusp Separation MM 1.4 cm DOPPLER AV Peak Velocity 263.0 cm/s LVOT Peak Velocity 115.0 cm/s AV Area Cont Eq vti 1.1 cm squared AV Area Cont Eq pk 0.9 cm squared MV Peak Velocity 101.0 cm/s MV Area PHT 2.8 cm squared Mitral E to A Ratio 1.0 TV Peak E Velocity 42.0 cm/s PV Peak Velocity 107.0 cm/s FINDINGS Left Ventricle Normal left ventricular size and systolic function, EF 60% . No regional wall motion abnormalities. Mild left ventricular hypertrophy. No regional wall motion abnormalities.Grade I/IV diastolic dysfunction (abnormal relaxation filling pattern), normal to mildly elevated filling pressures. Right Ventricle The right ventricle is normal in size and function. Right Atrium The right atrium is normal in size. Left Atrium Mildly increased left atrial size. Echodensity in the interatrial septum Mitral Valve Mild mitral valve regurgitation. Aortic Valve Mild to moderate aortic valve stenosis, mean gradient 10.3 mmHg, CAITLIN 1.1 cm squared. [id number] aortic valve stenosis. Moderate aortic valve regurgitation. Peak velocity of 2.63 m/s with a peak gradient of 25 mmHg Tricuspid Valve No gross abnormalities noted Pulmonic Valve No gross abnormalities noted Pericardium No pericardial effusion. Aorta Normal ascending aorta dimension. IVC The inferior vena cava appears normal. CONCLUSIONS Left ventricular hypertrophy. No regional wall motion abnormalities.Grade I/IV diastolic dysfunction (abnormal relaxation filling pattern), normal to mildly elevated filling pressures. Mildly increased left atrial size. Echodensity in the interatrial septum, suggestive of lipomatous dystrophy. Mild mitral valve regurgitation. There is no pericardial effusion. There are no intracardiac masses. Compared to the study from 02/26/2019, there is development of aortic valve stenosis Dr Sherry Blakely MD FACC (Electronically Signed) Final Date: 10 July 2023 17:13 S
[2023-07-09 20:42] LABS: Glucose Point of Care 107 mg/dL (70-110)
--- NOTE | 2023-07-09 20:48 | P.PN_ITS ---
Subjective 2 Subjective: She denies chest pain or pressure. Denies pain or discomfort. Not oriented. Unable to tell me about her condition Vitals/I&O/Wt Last Vital Signs Temp 97.8 F 07/09/23 17:00 Pulse 58 L 07/09/23 19:00 Resp 15 07/09/23 19:00 BP 154/80 07/09/23 17:00 Pulse Ox 99 07/09/23 17:00 O2 Del Method Room Air 07/09/23 17:00 07/09/23 07/09/23 07/09/23 06:59 14:59 22:59 Intake Total 1016.868 / 2694.119 9638.143 / 1692.143 200 / 1892.143 Output Total 600 / 1100 700 / 700 100 / 800 Balance 416.868 / 171.317 992.143 / 992.143 100 / 1092.143 Weight last 48 hrs Weight 66.877 kg Weight 69.853 kg Weight 55.338 kg Physical Exam 2 Const: COMMON NORMALS: alert; negative for patient oriented x3 GENERAL APPEARANCE: cooperative O RIENTATION/CONSCIOUSNESS: Yes awake HENMT: COMMON NORMALS: oropharynx normal Neck/C-Spine: COMMON NORMALS: no JVD Resp: COMMON NORMALS: normal respiratory effort and clear to auscultation bilaterally AUSCULTATION: clear to auscultation bilaterally Cardio: COMMON NORMALS: no JVD, regular rhythm, S1 normal heart sound present, S2 normal heart sound present and No murmurs present (Cardio) RATE: b radycardic RHYTHM: regular rhythm HEART SOUNDS: S1 normal heart sound present and S2 normal heart sound present GI: COMMON NORMALS: Normal to inspection, nondistended, normoactive bowel sounds present, Soft to palpation and non-tender PALPATION: Yes Soft to palpation Extremity: COMMON NORMALS: no joint enlargement and no pedal edema Neuro: COMMON NORMALS: moves all extremities; negative for patient oriented x3 SENSORIUM/ORIENTATION: Yes alert Skin: COMMON NORMALS: no rashes or lesions noted GENERAL SKIN EXAM: no rashes or lesions noted Data 07/09/23 05:34 07/09/23 05:34 A&P Assessment and plan (1) High degree atrioventricular block: Reviewed vitals, CBC, chemistry, cardiology note. So far Decreasing dopamine requirement, wean down to 5 mcg/min, weaned off temporarily but we had to restart pressors this evening. Not ready to leave ICU. Still bradycardic. Still question of whether may end up requiring pacemaker. Cardiology following and will be reassessing. She seems to have stated reluctance to protracted life support given her age, although unclear how much of that was in relation/understanding of her current condition as she is otherwise not oriented and unable to tell me about her medical condition. However, this may be helpful in case of further goals of care. Levothyroxine dose has been increased. Continue to hold off beta-pauly. Monitor on telemetry. History of atrial fibrillation. (2) Cardiogenic shock: With gradual improvement but still requiring dopamine infusion this evening. Continue to hold off beta-pauly. Levothyroxine dose has been adjusted. Continue dopamine infusion. Wean down as tolerating. Cardiac monitoring. Hold beta-pauly. Adjust levothyroxine dose. Reassess heart rate. Cardiology consultation for high-grade AV block with severe symptomatic bradycardia. (3) Hypothyroidism: (4) RED (acute kidney injury): Reviewed BUN, creatinine, electrolytes, acid-base balance -improving renal function. Creatinine down to 1.1. Getting closer to baseline. Reassess kidney function, electrolytes. Continue to support hemodynamics. Hold Lasix. Plan HTN: Currently hypotensive, monitor blood pressure. Atrial fibrillation: Not on anticoagulation, had blood in the stool. Consideration was going to be given to possibly restarting anticoagulation as per review of cardiology note from office. HLD: Continue statin. DM 2: Reviewed Accu-Cheks, continue sliding scale insulin. COPD: Not in exacerbation Dementia Attestations 2 Medical Necessity Statement*: Continue admission for assessment management of severe symptomatic bradycardia, cardiogenic shock. Coding Level of Care Code Critical Care >/= 30 minutes Critical care time (in minutes): 35 The high probability of a clinically significant, sudden or life threatening deterioration, as referenced in this documentation, required my full and direct attention, intervention and personal management. The critical care time shown is in addition to time spent performing any reported separately billable procedures and includes the following: [x] Data and vital sign review and interpretation [x ] Patient assessment, examination and intervention [x] Medication orders and management [x] Patient/Family updates as able [x] Care Coordination and Documentation. Diagnoses High degree atrioventricular block I44.39 Cardiogenic shock R57.0 Hypothyroidism E03.9 RED (acute kidney injury) N17.9
[2023-07-09] MEDS: atorvastatin 40 mg Tablet 80 MG PO (20:49)
[2023-07-10] VITALS (32 sets, daily range): BP systolic 136–185; BP diastolic 44–94; PULSE 42–76; RESP 12–24; TEMP 36.3–37.1; O2SAT 92–100
[2023-07-10 02:34] LABS: Glucose Point of Care 80 mg/dL (70-110)
[2023-07-10] MEDS: heparin 5,000 unit/mL INJ 1 mL 5000 UNIT SUBCUT (02:42)
[2023-07-10] MEDS: sodium chloride 0.9% 1,000 ML 100 ML IV ×2 (02:43→15:21)
[2023-07-10 04:54] LABS: Basophils % 0.6 %; Eosinophils # 0.1 10^3/uL (0.0-0.8); Hematocrit 29.8 % (36-47); Lymphocytes # 1.8 10^3/uL (0.8-4.8); Lymphocytes % 28.6 %; Mean Corpuscular HGB Conc 30.5 g/dL (30-55); Mean Corpuscular Hemoglobin 27.4 pg (27-33); Mean Corpuscular Volume 89.8 fl (85-98); Mean Platelet Volume 10.5 fL (7.4-10.4); Monocytes # 0.7 10^3/uL (0.2-0.9); Monocytes % 10.4 %; Neutrophils % 58.1 %; Nucleated Red Blood Cells % 0 %; Platelet Count 207 10^3/cmm (157-399); Red Blood Count 3.32 10^6/uL (3.85-5.65); Red Cell Distribution Width 12.3 % (12.1-15.1); White Blood Count 6.37 10^3/uL (3.29-11.43)
[2023-07-10 05:26] LABS: Blood Urea Nitrogen 21 mg/dL (8-23); Calcium 7.7 mg/dL (8.5-10.5); Carbon Dioxide 21 mmol/L (22-29); Chloride 108 mmol/L (98-107); Glucose 72 mg/dL (65-115); Osmolality Calculated 286 mOsm/kg (285-295); Sodium 137 mmol/L (136-145)
[2023-07-10 07:22] LABS: Glucose Point of Care 82 mg/dL (70-110)
[2023-07-10] MEDS: montelukast sodium 10 mg Tablet PO (08:53)
[2023-07-10] MEDS: levothyroxine 125 mcg Tablet PO (08:53)
[2023-07-10] MEDS: pantoprazole DR 40 mg Tablet PO (08:53)
--- NOTE | 2023-07-10 09:41 | PC.SOCIAL ---
IMM Update: pg 2 of IMM updated and reviewed w/ patient and family. Copy provided and copy dated, initialed and placed in chart.
--- NOTE | 2023-07-10 10:25 | PC.NURSE ---
Pt out of bed to [facility] with 1 assist due to monitoring wires. Pt then ambulated around unit without difficulty. Heart rate stayed in 70's. So shortness of breath, chest pain or dizziness noted.
[2023-07-10 11:10] LABS: Glucose Point of Care 84 mg/dL (70-110)
[2023-07-10 17:19] LABS: Glucose Point of Care 105 mg/dL (70-110)
--- NOTE | 2023-07-10 17:41 | PM.PN ---
Subjective Subjective: The patient is feeling okay. Her heart rate seems to have improved. She is off the dopamine Heart rate seems to be in the 50s mostly. Medications: Medication Review Details: Current Medications Acetaminophen (Acetaminophen 325 Mg Tablet) 650 mg PO Q6H PRN PRN Reason: Mild/Mod Pain Or Temp >/= 101 Last Admin: 07/08/23 23:21 Dose: 650 mg Atorvastatin Calcium (Atorvastatin 40 Mg Tablet) 80 mg PO BEDTIME [facility] Last Admin: 07/09/23 20:49 Dose: 80 mg Heparin Sodium (Porcine) (Heparin 5,000 Unit/Ml Inj 1 Ml) 5,000 unit SUBCUT Q12H [facility] Last Admin: 07/10/23 02:42 Dose: 5,000 unit Dopamine HCl/Dextrose (Intropin Drip) 400 mg in 250 mls @ 10.376 mls/hr IV CONT SOBIA; Protocol Last Titration: 07/10/23 15:21 Dose: 0 mcg/kg/min, 0 mls/hr Sodium Chloride (Sodium Chloride 0.9%) 1,000 mls @ 100 mls/hr IV .Q10H [facility] Last Admin: 07/10/23 15:21 Dose: 100 mls/hr Dextrose (D5w) 500 mls @ 0 mls/hr IV ONCE PRN; Protocol PRN Reason: Adult Acute Hypoglycemia Prot Dextrose (D10w) 125 mls @ 750 mls/hr IV PRN PRN; Protocol PRN Reason: Adult Acute Hypoglycemia Nursing Protocol Dextrose (D10w) 250 mls @ 1,000 mls/hr IV PRN PRN; Protocol PRN Reason: Adult Acute Hypoglycemia Nursing Protocol Insulin Human Lispro (Insulin Lispro 100 Unit/1 Ml) 0 unit SUBCUT Q6H [facility]; Protocol Levothyroxine Sodium (Levothyroxine 125 Mcg Tablet) 125 mcg PO DAILY [facility] Last Admin: 07/10/23 08:53 Dose: 125 mcg Montelukast Sodium (Montelukast Sodium 10 Mg Tablet) 10 mg PO DAILY [facility] Last Admin: 07/10/23 08:53 Dose: 10 mg Ondansetron HCl (Ondansetron 2 Mg/Ml Sdv 2 Ml) 4 mg IVP Q6H PRN PRN Reason: NAUSEA AND VOMITING Pantoprazole Sodium (Pantoprazole Dr 40 Mg Tablet) 40 mg PO DAILY [facility] Last Admin: 07/10/23 08:53 Dose: 40 mg Vitals/I&O/Wt Last Vital Signs Temp 98.2 F 07/10/23 16:39 Pulse 70 07/10/23 15:12 Resp 14 07/10/23 15:00 BP 140/60 07/10/23 15:00 Pulse Ox 93 07/10/23 15:00 O2 Del Method Room Air 07/10/23 15:00 07/10/23 07/10/23 07/10/23 06:59 14:59 22:59 Intake Total 671.667 / 3192.143 1486 / 1486 0 / 1486 Output Total 275 / 1225 175 / 175 Balance 396.667 / 2944.666 0376 / 1311 0 / 1311 Weight last 48 hrs Weight 147 lb 7 oz Physical Exam Narrative: GENERAL: The patient is alert and oriented times three. Not in any acute distress. HEENT: No significant pallor, icterus or lymphadenopathy.Oral cavity: There are no mucous membrane lesions. NECK: Trachea appears to be central. No masses noted. No JVD or thyromegaly appreciated. RESPIRATORY: Chest is symmetrical. No intercostals muscle retraction or any accessory muscle activation. There is no chest wall tenderness. Breath sounds are heard bilaterally. No rales or rhonchi heard. No evidence of any consolidation. BREASTS: Deferred. HEART: The heart sounds are normal. No S3 or S4. Short systolic murmur in the lower sternal border. No diastolic murmurs. No pericardial rub ABDOMEN: No vessel pulsations or distention. No tenderness. No organomegaly appreciated. Bowel sounds are normally heard. : Deferred. RECTAL: Deferred. LYMPHATIC: No lymphadenopathy noted in the neck. EXTREMITIES: No edema or cyanosis. No clubbing. MUSCULOSKELETAL: No acute joint deformities or swelling SKIN: There are no significant rashes or ecchymosis NEUROPSYCHIATRIC: The patient is alert and oriented x3. Appears to be in a good mood. No tremors or rigidity noted. Data 07/11/23 03:13 07/11/23 03:13 Other Labs: Laboratory Last Values WBC 6.60 10^3/uL (3.29-11.43) 07/11/23 03:13 RBC 3.06 10^6/uL (3.85-5.65) L 07/11/23 03:13 Hgb 8.40 g/dL (11.27-16.99) L 07/11/23 03:13 Hct 27.7 % (36-47) L 07/11/23 03:13 MCV 90.5 fl (85-98) 07/11/23 03:13 MCH 27.5 pg (27-33) 07/11/23 03:13 MCHC 30.3 g/dL (30-55) 07/11/23 03:13 RDW 12.3 % (12.1-15.1) 07/11/23 03:13 Plt Count 198 10^3/cmm (157-399) 07/11/23 03:13 MPV 10.6 fL (7.4-10.4) H 07/11/23 03:13 Neut % (Auto) 66.3 % 07/11/23 03:13 Lymph % (Auto) 20.6 % 07/11/23 03:13 [place] % (Auto) 10.5 % 07/11/23 03:13 Eos % (Auto) 1.8 % 07/11/23 03:13 Baso % (Auto) 0.6 % 07/11/23 03:13 Neut # (Auto) 4.38 10^3/uL (1.8-7.7) 07/11/23 03:13 Lymph # (Auto) 1.4 10^3/uL (0.8-4.8) 07/11/23 03:13 [place] # (Auto) 0.7 10^3/uL (0.2-0.9) 07/11/23 03:13 Eos # (Auto) 0.1 10^3/uL (0.0-0.8) 07/11/23 03:13 Baso # (Auto) 0.0 10^3/uL (0.0-0.1) 07/11/23 03:13 Nucleated RBC % (auto) 0 % 07/11/23 03:13 Nucleated RBCs # 0.0 /100WBC 07/11/23 03:13 Sodium 140 mmol/L (136-145) 07/11/23 03:13 Potassium 4.1 mmol/L (3.5-5.1) 07/11/23 03:13 Chloride 109 mmol/L (98-107) H 07/11/23 03:13 Carbon Dioxide 23 mmol/L (22-29) 07/11/23 03:13 Anion Gap 12.1 (5-19) 07/11/23 03:13 BUN 19 mg/dL (8-23) 07/11/23 03:13 Creatinine 1.1 mg/dL (0.5-0.9) H 07/11/23 03:13 GFR Calculation Not Reportable 07/11/23 03:13 Glucose 79 mg/dL (65-115) 07/11/23 03:13 POC Glucose 91 mg/dL (70-110) 07/11/23 05:16 Calculated Osmolality 291 mOsm/kg (285-295) 07/11/23 03:13 Calcium 8.1 mg/dL (8.5-10.5) L 07/11/23 03:13 Magnesium 3.1 mg/dL (1.7-2.3) H 07/08/23 12:28 Total Bilirubin 0.3 mg/dL (0.15-1.2) 07/08/23 12:28 AST 12 U/L (0-32) 07/08/23 12:28 ALT 9 U/L (0-33) 07/08/23 12:28 Alkaline Phosphatase 73 U/L (35-105) 07/08/23 12:28 Troponin T Baseline 33 ng/L (0-10) H 07/08/23 12:28 Troponin T 120 Minute 27.68 ng/L (0-10) H 07/08/23 14:34 Delta Troponin T -5.32 ABS# (0-10) L 07/08/23 14:34 Troponin T Hi Sens 6Hr 30.65 ng/L (0-10) H 07/08/23 19:07 Troponin T Hi Sens 6Hr Delta -2.35 ng/L (0-12) L 07/08/23 19:07 NT-Pro-B Natriuret Pep 1151 pg/mL (0-450) H 07/08/23 12:28 Total Protein 6.0 g/dL (6.6-8.7) L 07/08/23 12:28 Albumin 4.0 g/dL (3.5-5.2) 07/08/23 12:28 Globulin 2.0 g/dL (1.3-4.6) 07/08/23 12:28 TSH 8.60 uIU/mL (0.27-4.20) H 07/08/23 12:28 Urine Color Light yellow (Yellow) 07/08/23 18:35 Urine Appearance Clear (CLEAR) 07/08/23 18:35 Urine pH 8 (5-7) H 07/08/23 18:35 Ur Specific [place] 1.010 (1.005-1.030) 07/08/23 18:35 Urine Protein Neg (Negative) 07/08/23 18:35 Urine Glucose (UA) Norm (Normal) 07/08/23 18:35 Urine Ketones Negative (Negative) 07/08/23 18:35 Urine Blood Neg (Negative) 07/08/23 18:35 Urine Nitrate Negative (Negative) 07/08/23 18:35 Urine Bilirubin Neg (Negative) 07/08/23 18:35 Prot Sulfosalicylic Acd Negative (Negative) 07/08/23 18:35 Urine Urobilinogen Norm mg/dL (Negative) 07/08/23 18:35 Ur Leukocyte Esterase Negative (Negative) 07/08/23 18:35 A&P Assessment and plan (1) Symptomatic bradycardia: Patient may be transferred to the telemetry floor. Will be watching her on the monitor. If the heart rate is remains in the 50s with no new symptoms, may be discharged home tomorrow (2) Hypotension: May started on losartan 25 mg p.o. daily for the blood pressure control Qualifiers: Hypotension type: other hypotension type Qualified Code(s): I95.89 - Other hypotension (3) Intermittent atrial fibrillation: Patient is currently in sinus rhythm. She has been on oral anticoagulation. Because of the GI bleed, it is on hold. (4) GI bleed: Etiology is not clear. This needs to be further evaluated. Qualifiers: GI bleed type/associated pathology: melena Qualified Code(s): K92.1 - Melena (5) Type 2 diabetes mellitus: Her blood sugars seems to be fairly under control Qualifiers: Diabetes mellitus detention insulin use: with bed bug exterminator use Diabetes mellitus complication status: without complication Qualified Code(s): E11.9 - Type 2 diabetes mellitus without complications; Z79.4 - termite treater helper (current) use of insulin (6) Acquired hypothyroidism: May increase the dose of the L-thyroxine at this time. Continue the current dose of 125 mcg daily Plan Possible discharge home tomorrow Attestations Medical Necessity Statement*: Defer to the primary Coding Level of Care Code 37766 Diagnoses Symptomatic bradycardia R00.1 Other specified hypotension I95.89 Hypotension type: other hypotension type Intermittent atrial fibrillation I48.0 Gastrointestinal hemorrhage with melena K92.1 GI bleed type/associated pathology: melena Type 2 diabetes mellitus without complication, with long-term current use of insulin E11.9; Z79.4 Diabetes mellitus bed bug exterminator insulin use: with bed bug exterminator use Diabetes mellitus complication status: without complication Acquired hypothyroidism E03.9
[2023-07-10] MEDS: losartan 50 mg Tablet 25 MG PO (18:11)
--- NOTE | 2023-07-10 18:30 | PC.NURSE ---
Report called to CSU and Given to ARIADNA Powers. Pt transferred via W/c to room 107. All belongings with pt.
--- NOTE | 2023-07-10 19:30 | PC.NURSE ---
Shift summary: Pt rested in bed most of the shift. she did not want to sit in chair, she stated she was cold. She did ambulate around unit with son, heart rate maintained in the 70's, no cardiac or respiratory issues noted. She has been afebrile. She as dementia and gets confused about the monitoring wires and IV lines. She has not pulled any off, but they do concern her. She cries when the automatic BP cuff went off. So several of the BPs were taking manually today. Some were missed due to her refusal. She ate majority of every meal today. She just sipped at her water. She would get up occasionally to BSC, Urine outputs minimal each time. No Bm noted this shift.
--- NOTE | 2023-07-10 19:30 | PC.NURSE ---
Patient is very anxious and weepy. Restless with tears rolling down her cheeks. Patient very upset. Informed Dr Hess.
--- NOTE | 2023-07-10 20:11 | P.PN_ITS ---
Subjective 2 Subjective: Reports she is still not feeling the best but somewhat better. Denies chest pain or pressure. No shortness of breath. Vitals/I&O/Wt Last Vital Signs Temp 98.2 F 07/10/23 16:39 Pulse 63 07/10/23 18:00 Resp 15 07/10/23 18:00 BP 181/88 07/10/23 18:11 Pulse Ox 93 07/10/23 18:00 O2 Del Method Room Air 07/10/23 18:00 07/10/23 07/10/23 07/10/23 06:59 14:59 22:59 Intake Total 671.667 / 3192.143 1486 / 1486 695 / 2181 Output Total 275 / 1225 175 / 175 100 / 275 Balance 396.667 / 5542.764 6493 / 1311 595 / 1906 Weight last 48 hrs Weight 66.877 kg Physical Exam 2 Narrative: Being visited by family Const: COMMON NORMALS: alert; negative for patient oriented x3 GENERAL APPEARANCE: cooperative O RIENTATION/CONSCIOUSNESS: Yes awake HENMT: COMMON NORMALS: oropharynx normal Neck/C-Spine: COMMON NORMALS: no JVD Resp: COMMON NORMALS: normal respiratory effort and clear to auscultation bilaterally AUSCULTATION: clear to auscultation bilaterally Cardio: COMMON NORMALS: no JVD, regular rhythm, S1 normal heart sound present, S2 normal heart sound present and No murmurs present (Cardio) RATE: b radycardic RHYTHM: regular rhythm HEART SOUNDS: S1 normal heart sound present and S2 normal heart sound present GI: COMMON NORMALS: Normal to inspection, nondistended, normoactive bowel sounds present, Soft to palpation and non-tender PALPATION: Yes Soft to palpation Extremity: COMMON NORMALS: no joint enlargement and no pedal edema Neuro: COMMON NORMALS: moves all extremities; negative for patient oriented x3 SENSORIUM/ORIENTATION: Yes alert Skin: COMMON NORMALS: no rashes or lesions noted GENERAL SKIN EXAM: no rashes or lesions noted Data 07/10/23 04:43 07/10/23 04:43 A&P Assessment and plan (1) High degree atrioventricular block: Reviewed vitals, CBC, BMP, echocardiogram. Noted grade 1 diastolic dysfunction. LVH. Reviewed cardiology note, discussed with ground operations supervisor. 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 Mild MVR. Discussed with family regarding patient stated wishes regarding goals of care yesterday to allow them to consider statements in future goals of care plans. Although she also does not remember her statements with dementia. This morning she is weaned off dopamine. Transfer out of ICU. Continue to monitor on telemetry. Continue to withhold atenolol. As per discussion with cardiology in case of tachycardia consider restarting small dose beta-pauly 12.5 mg metoprolol. Continue with adjusted dose of levothyroxine. Will need to follow-up for reassessment of thyroid function. Monitor on telemetry. History of atrial fibrillation. (2) Cardiogenic shock: Resolved. Stop dobutamine. Hold off Lasix for now. Hold off antihypertensives. With gradual improvement but still requiring dopamine infusion this evening. Continue to hold off beta-pauly. Levothyroxine dose has been adjusted. Continue dopamine infusion. Wean down as tolerating. Cardiac monitoring. Hold beta-pauly. Adjust levothyroxine dose. Reassess heart rate. Cardiology consultation for high-grade AV block with severe symptomatic bradycardia. (3) Hypothyroidism: Levothyroxine dose has been adjusted. Follow-up thyroid function in office. (4) RED (acute kidney injury): Discussed also renal functions improving, reviewed BUN, creatinine, electrolytes, acid-base, resolving RED. Follow-up chemistry requested. Reassess kidney function, electrolytes. Continue to support hemodynamics. Hold Lasix. Plan HTN: Currently hypotensive, monitor blood pressure. Atrial fibrillation: Not on anticoagulation, had blood in the stool. Consideration was going to be given to possibly restarting anticoagulation as per review of cardiology note from office. HLD: Continue statin. DM 2: Reviewed Accu-Cheks, continue sliding scale insulin. COPD: Not in exacerbation Dementia Attestations 2 Medical Necessity Statement*: Continue admission for assessment of management of bradycardia which has been gradually improving. and High MDM includes amount and/or complexity of data reviewed/ordered [ previous or external records, resulted lab(s)/test(s), ordered lab(s)/test(s) and other healthcare professional discussion] as documented Diagnoses High degree atrioventricular block I44.39 Cardiogenic shock R57.0 Hypothyroidism E03.9 RED (acute kidney injury) N17.9
[2023-07-10] MEDS: atorvastatin 40 mg Tablet 80 MG PO (21:01)
[2023-07-10 23:52] LABS: Glucose Point of Care 90 mg/dL (70-110)
[2023-07-11 02:42] VITALS: BP 133/48; RESP 24; TEMP 37
--- NOTE | 2023-07-11 02:52 | PC.NURSE ---
Patient restless and agitated at times tonight. Patient refusing to wear telemetry stating, my heart will blow up if I leave these on. Attempted to reassure and redirect patient. Patient has history of dementia and is unable to understand instruction. Will continue to monitor.
[2023-07-11 04:02] LABS: Basophils % 0.6 %; Eosinophils # 0.1 10^3/uL (0.0-0.8); Eosinophils % 1.8 %; Hematocrit 27.7 % (36-47); Lymphocytes # 1.4 10^3/uL (0.8-4.8); Lymphocytes % 20.6 %; Mean Corpuscular HGB Conc 30.3 g/dL (30-55); Mean Corpuscular Hemoglobin 27.5 pg (27-33); Mean Corpuscular Volume 90.5 fl (85-98); Mean Platelet Volume 10.6 fL (7.4-10.4); Monocytes # 0.7 10^3/uL (0.2-0.9); Monocytes % 10.5 %; Neutrophils # 4.38 10^3/uL (1.8-7.7); Neutrophils % 66.3 %; Nucleated Red Blood Cells % 0 %; Platelet Count 198 10^3/cmm (157-399); Red Blood Count 3.06 10^6/uL (3.85-5.65); Red Cell Distribution Width 12.3 % (12.1-15.1)
[2023-07-11 04:28] LABS: Anion Gap 12.1 (5-19); Blood Urea Nitrogen 19 mg/dL (8-23); Calcium 8.1 mg/dL (8.5-10.5); Carbon Dioxide 23 mmol/L (22-29); Chloride 109 mmol/L (98-107); Creatinine Clr Calc Pharmacy 39.6952; Glucose 79 mg/dL (65-115); Osmolality Calculated 291 mOsm/kg (285-295); Potassium 4.1 mmol/L (3.5-5.1); Sodium 140 mmol/L (136-145)
[2023-07-11 05:10] VITALS: RESP 16
[2023-07-11 05:35] LABS: Glucose Point of Care 91 mg/dL (70-110)
[2023-07-11 07:37] VITALS: BP 152/68; PULSE 56; RESP 14; TEMP 36.9
[2023-07-11] MEDS: losartan 50 mg Tablet 25 MG PO (08:26)
[2023-07-11] MEDS: montelukast sodium 10 mg Tablet PO (08:26)
[2023-07-11] MEDS: levothyroxine 125 mcg Tablet PO (08:26)
[2023-07-11] MEDS: pantoprazole DR 40 mg Tablet PO (08:26)
--- NOTE | 2023-07-11 10:14 | P.PN_ITS ---
Subjective 2 Subjective: The patient is feeling okay. The heart rate seems to be staying in the 50s most of the times. When she goes to sleep, the heart rate goes into the upper 40s. She is asymptomatic. She has been ambulating on telemetry with no specific complaints. Medications: Medication Review Details: Current Medications Acetaminophen (Acetaminophen 325 Mg Tablet) 650 mg PO Q6H PRN PRN Reason: Mild/Mod Pain Or Temp >/= 101 Last Admin: 07/08/23 23:21 Dose: 650 mg Atorvastatin Calcium (Atorvastatin 40 Mg Tablet) 80 mg PO BEDTIME [facility] Last Admin: 07/10/23 21:01 Dose: 80 mg Heparin Sodium (Porcine) (Heparin 5,000 Unit/Ml Inj 1 Ml) 5,000 unit SUBCUT Q12H [facility] Last Admin: 07/10/23 02:42 Dose: 5,000 unit Dextrose (D5w) 500 mls @ 0 mls/hr IV ONCE PRN; Protocol PRN Reason: Adult Acute Hypoglycemia Prot Dextrose (D10w) 125 mls @ 750 mls/hr IV PRN PRN; Protocol PRN Reason: Adult Acute Hypoglycemia Nursing Protocol Dextrose (D10w) 250 mls @ 1,000 mls/hr IV PRN PRN; Protocol PRN Reason: Adult Acute Hypoglycemia Nursing Protocol Insulin Human Lispro (Insulin Lispro 100 Unit/1 Ml) 0 unit SUBCUT Q6H [facility]; Protocol Last Admin: 07/11/23 05:21 Dose: Not Given Levothyroxine Sodium (Levothyroxine 125 Mcg Tablet) 125 mcg PO DAILY [facility] Last Admin: 07/11/23 08:26 Dose: 125 mcg Losartan Potassium (Losartan 50 Mg Tablet) 25 mg PO DAILY [facility] Last Admin: 07/11/23 08:26 Dose: 25 mg Montelukast Sodium (Montelukast Sodium 10 Mg Tablet) 10 mg PO DAILY [facility] Last Admin: 07/11/23 08:26 Dose: 10 mg Ondansetron HCl (Ondansetron 2 Mg/Ml Sdv 2 Ml) 4 mg IVP Q6H PRN PRN Reason: NAUSEA AND VOMITING Pantoprazole Sodium (Pantoprazole Dr 40 Mg Tablet) 40 mg PO DAILY [facility] Last Admin: 07/11/23 08:26 Dose: 40 mg Vitals/I&O/Wt Last Vital Signs Temp 98.4 F 07/11/23 07:37 Pulse 56 L 07/11/23 07:37 Resp 14 07/11/23 07:37 BP 152/68 07/11/23 07:37 Pulse Ox 97 07/10/23 23:52 O2 Del Method Room Air 07/10/23 23:52 07/10/23 07/11/23 07/11/23 22:59 06:59 14:59 Intake Total 695 / 2181 100 / 2281 120 / 120 Output Total 100 / 275 Balance 595 / 1906 2005 120 / 120 Weight last 48 hrs Weight 157 lb 14.4 oz Physical Exam 2 Narrative: GENERAL: The patient is alert and oriented times three. Not in any acute distress. HEENT: No significant pallor, icterus or lymphadenopathy.Oral cavity: There are no mucous membrane lesions. NECK: Trachea appears to be central. No masses noted. No JVD or thyromegaly appreciated. RESPIRATORY: Chest is symmetrical. No intercostals muscle retraction or any accessory muscle activation. There is no chest wall tenderness. Breath sounds are heard bilaterally. No rales or rhonchi heard. No evidence of any consolidation. BREASTS: Deferred. HEART: The heart sounds are normal. No S3 or S4. Short systolic murmur in the left upper border. No diastolic murmurs.. No pericardial rub ABDOMEN: No vessel pulsations or distention. No tenderness. No organomegaly appreciated. Bowel sounds are normally heard. : Deferred. RECTAL: Deferred. LYMPHATIC: No lymphadenopathy noted in the neck. EXTREMITIES: No edema or cyanosis. No clubbing. MUSCULOSKELETAL: No acute joint deformities or swelling SKIN: There are no significant rashes or ecchymosis NEUROPSYCHIATRIC: The patient is alert and oriented x3. Appears to be in a good mood. No tremors or rigidity noted. Data 07/11/23 03:13 07/11/23 03:13 Other Labs: Laboratory Last Values WBC 6.60 10^3/uL (3.29-11.43) 07/11/23 03:13 RBC 3.06 10^6/uL (3.85-5.65) L 07/11/23 03:13 Hgb 8.40 g/dL (11.27-16.99) L 07/11/23 03:13 Hct 27.7 % (36-47) L 07/11/23 03:13 MCV 90.5 fl (85-98) 07/11/23 03:13 MCH 27.5 pg (27-33) 07/11/23 03:13 MCHC 30.3 g/dL (30-55) 07/11/23 03:13 RDW 12.3 % (12.1-15.1) 07/11/23 03:13 Plt Count 198 10^3/cmm (157-399) 07/11/23 03:13 MPV 10.6 fL (7.4-10.4) H 07/11/23 03:13 Neut % (Auto) 66.3 % 07/11/23 03:13 Lymph % (Auto) 20.6 % 07/11/23 03:13 [place] % (Auto) 10.5 % 07/11/23 03:13 Eos % (Auto) 1.8 % 07/11/23 03:13 Baso % (Auto) 0.6 % 07/11/23 03:13 Neut # (Auto) 4.38 10^3/uL (1.8-7.7) 07/11/23 03:13 Lymph # (Auto) 1.4 10^3/uL (0.8-4.8) 07/11/23 03:13 [place] # (Auto) 0.7 10^3/uL (0.2-0.9) 07/11/23 03:13 Eos # (Auto) 0.1 10^3/uL (0.0-0.8) 07/11/23 03:13 Baso # (Auto) 0.0 10^3/uL (0.0-0.1) 07/11/23 03:13 Nucleated RBC % (auto) 0 % 07/11/23 03:13 Nucleated RBCs # 0.0 /100WBC 07/11/23 03:13 Sodium 140 mmol/L (136-145) 07/11/23 03:13 Potassium 4.1 mmol/L (3.5-5.1) 07/11/23 03:13 Chloride 109 mmol/L (98-107) H 07/11/23 03:13 Carbon Dioxide 23 mmol/L (22-29) 07/11/23 03:13 Anion Gap 12.1 (5-19) 07/11/23 03:13 BUN 19 mg/dL (8-23) 07/11/23 03:13 Creatinine 1.1 mg/dL (0.5-0.9) H 07/11/23 03:13 GFR Calculation Not Reportable 07/11/23 03:13 Glucose 79 mg/dL (65-115) 07/11/23 03:13 POC Glucose 91 mg/dL (70-110) 07/11/23 05:16 Calculated Osmolality 291 mOsm/kg (285-295) 07/11/23 03:13 Calcium 8.1 mg/dL (8.5-10.5) L 07/11/23 03:13 Magnesium 3.1 mg/dL (1.7-2.3) H 07/08/23 12:28 Total Bilirubin 0.3 mg/dL (0.15-1.2) 07/08/23 12:28 AST 12 U/L (0-32) 07/08/23 12:28 ALT 9 U/L (0-33) 07/08/23 12:28 Alkaline Phosphatase 73 U/L (35-105) 07/08/23 12:28 Troponin T Baseline 33 ng/L (0-10) H 07/08/23 12:28 Troponin T 120 Minute 27.68 ng/L (0-10) H 07/08/23 14:34 Delta Troponin T -5.32 ABS# (0-10) L 07/08/23 14:34 Troponin T Hi Sens 6Hr 30.65 ng/L (0-10) H 07/08/23 19:07 Troponin T Hi Sens 6Hr Delta -2.35 ng/L (0-12) L 07/08/23 19:07 NT-Pro-B Natriuret Pep 1151 pg/mL (0-450) H 07/08/23 12:28 Total Protein 6.0 g/dL (6.6-8.7) L 07/08/23 12:28 Albumin 4.0 g/dL (3.5-5.2) 07/08/23 12:28 Globulin 2.0 g/dL (1.3-4.6) 07/08/23 12:28 TSH 8.60 uIU/mL (0.27-4.20) H 07/08/23 12:28 Urine Color Light yellow (Yellow) 07/08/23 18:35 Urine Appearance Clear (CLEAR) 07/08/23 18:35 Urine pH 8 (5-7) H 07/08/23 18:35 Ur Specific [place] 1.010 (1.005-1.030) 07/08/23 18:35 Urine Protein Neg (Negative) 07/08/23 18:35 Urine Glucose (UA) Norm (Normal) 07/08/23 18:35 Urine Ketones Negative (Negative) 07/08/23 18:35 Urine Blood Neg (Negative) 07/08/23 18:35 Urine Nitrate Negative (Negative) 07/08/23 18:35 Urine Bilirubin Neg (Negative) 07/08/23 18:35 Prot Sulfosalicylic Acd Negative (Negative) 07/08/23 18:35 Urine Urobilinogen Norm mg/dL (Negative) 07/08/23 18:35 Ur Leukocyte Esterase Negative (Negative) 07/08/23 18:35 A&P Assessment and plan (1) Symptomatic bradycardia: Patient's symptoms improved. Currently she is in sinus bradycardia with a heart rate in the 50s most of the times. This condition is chronic. (2) Intermittent atrial fibrillation: Patient is currently in sinus rhythm. She has been on oral anticoagulation. Because of the GI bleed, it is on hold. (3) Essential (primary) hypertension: May started on losartan 25 mg p.o. daily for the blood pressure control. Patient seems to be tolerating the medication so far well (4) GI bleed: Etiology is not clear. This needs to be further evaluated. Patient is not on any oral anticoagulant for this reason Qualifiers: GI bleed type/associated pathology: melena Qualified Code(s): K92.1 - Melena (5) Type 2 diabetes mellitus: Her blood sugars seems to be fairly under control Qualifiers: Diabetes mellitus complication status: without complication Diabetes mellitus predatory animal exterminator insulin use: with predatory animal exterminator use Qualified Code(s): E11.9 - Type 2 diabetes mellitus without complications; Z79.4 - prison (current) use of insulin (6) Acquired hypothyroidism: May continue on the current dose of the L-thyroxine of 125 mcg daily Plan Possible discharge home today. Patient may go home with an event monitor. Will be seen in the clinic in a week by the nurse practitioner. I may see her back in the office in 1 month Attestations 2 Medical Necessity Statement*: Disposition as per the primary Coding Level of Care Code Acute Code for Chg Fwd Diagnoses Symptomatic bradycardia R00.1 Intermittent atrial fibrillation I48.0 Essential (primary) hypertension I10 Gastrointestinal hemorrhage with melena K92.1 GI bleed type/associated pathology: melena Type 2 diabetes mellitus without complication, with long-term current use of insulin E11.9; Z79.4 Diabetes mellitus complication status: without complication Diabetes mellitus predatory animal exterminator insulin use: with correction use Acquired hypothyroidism E03.9
[2023-07-11 11:26] VITALS: BP 148/60; PULSE 50; RESP 12; TEMP 36.9; O2SAT 94
[2023-07-11 12:11] VITALS: BP 148/60; PULSE 50; RESP 12; TEMP 36.9; O2SAT 94
--- NOTE | 2023-07-11 15:06 | PC.NURSE ---
Patients daughter, Darcie, calls back to hospital after taking her home and said that the [facility] did not carry the medication that was sent in. Provider is notified that the dose of levothyoxine that was sent in is not available. What would you like to do? He said to change the medication to 75 mcg daily #30. Patients daughter is called with change and [facility] is called with new order.
--- NOTE | 2023-07-11 20:23 | PM.DCS ---
Discharge Providers Date of Admission: 07/08/23 13:18 Date of Discharge: July 11, 2023 Attending Provider at Admission: Juanito Weldon Attending Provider at Discharge: Juanito Weldon Primary Care Provider: CURTIS Dumas Diagnoses at Discharge Discharge Diagnosis (1) Symptomatic bradycardia: Status: Acute (2) Intermittent atrial fibrillation: Status: Acute (3) Essential (primary) hypertension: Status: Chronic (4) GI bleed: Status: Acute Qualifiers: GI bleed type/associated pathology: melena Qualified Code(s): K92.1 - Melena (5) Type 2 diabetes mellitus: Status: Chronic Qualifiers: Diabetes mellitus assisted living coordinator insulin use: with assisted living coordinator use Diabetes mellitus complication status: without complication Qualified Code(s): E11.9 - Type 2 diabetes mellitus without complications; Z79.4 - correction (current) use of insulin (6) Acquired hypothyroidism: Status: Chronic Reason for Visit Reason for Visit: sent from nav office, low hr Brief History: 78-year-old lady with history of dementia, hypothyroidism, A-fib, CKD, COPD, HLD, HTN, DM2, CAD, was brought in for evaluation from cardiology office where she was seeing Dr. Blakely. She was found to have bradycardia down as low as 20s-30s, with noted low blood pressure. On arrival to ER blood pressure as low as 90/62. Hospital Course Hospital Course She was admitted and treated for cardiogenic shock with severe symptomatic bradycardia, treated with dopamine, atenolol was held, with hypothyroidism, elevated TSH, levothyroxine dose was increased. She was assessed by cardiology, underwent additional assessment by echocardiogram. With pressor support, withholding beta-pauly, adjustment of levothyroxine her bradycardia gradually improved, heart rate improved to 50s, she was able to maintain blood pressure on her own. Echocardiogram with LVH, no regional wall motion maladies, grade 1 diastolic dysfunction. 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 She did also recently have significant diuresis with lower extremity edema, discussed with family to continue Lasix only as needed in case of recurrence of fluid overload. She was reassessed by cardiology and found to be safe for discharge at this time with event monitor which was requested and follow-up in office. Acute kidney injury on presentation with cardiogenic shock has resolved. Please reassess renal function. Of note levothyroxine dose initially adjusted up to 63 mcg, however, this is not available at the pharmacy so dose was increased to 75 mcg daily instead, please follow-up thyroid function. Physical Exam Const: COMMON NORMALS: alert; negative for patient oriented x3 GENERAL APPEARANCE: cooperative ORIENTATION/CONSCIOUSNESS: Yes awake HENMT: COMMON NORMALS: oropharynx normal Neck/C-Spine: COMMON NORMALS: no JVD Resp: COMMON NORMALS: normal respiratory effort and clear to auscultation bilaterally AUSCULTATION: clear to auscultation bilaterally Cardio: COMMON NORMALS: no JVD, regular rhythm, S1 normal heart sound present, S2 normal heart sound present and No murmurs present (Cardio) RATE: bradycardic RHYTHM: regular rhythm HEART SOUNDS: S1 normal heart sound present and S2 normal heart sound present GI: COMMON NORMALS: Normal to inspection, nondistended, normoactive bowel sounds present, Soft to palpation and non-tender PALPATION: Yes Soft to palpation Extremity: COMMON NORMALS: no joint enlargement and no pedal edema Neuro: COMMON NORMALS: moves all extremities; negative for patient oriented x3 SENSORIUM/ORIENTATION: Yes alert Skin: COMMON NORMALS: no rashes or lesions noted GENERAL SKIN EXAM: no rashes or lesions noted Discharge Data Studies Completed and Pending Completed Studies During Hospitalization Category Date Time Status XR KUB portable [id number] Routine Exams 07/08/23 21:27 Completed XR chest 1V portable [id number] Stat Exams 07/08/23 12:09 Completed CV. echo complete* [id number] Routine Ultrasound 07/09/23 20:36 Completed Radiology Impressions Chest X-Ray 07/08/23 12:09 IMPRESSION: No acute intrathoracic findings. KUB X-Ray 07/08/23 21:27 IMPRESSION: No acute findings. Laboratory Results WBC 6.60 10^3/uL (3.29-11.43) 07/11/23 03:13 RBC 3.06 10^6/uL (3.85-5.65) L 07/11/23 03:13 Hgb 8.40 g/dL (11.27-16.99) L 07/11/23 03:13 Hct 27.7 % (36-47) L 07/11/23 03:13 MCV 90.5 fl (85-98) 07/11/23 03:13 MCH 27.5 pg (27-33) 07/11/23 03:13 MCHC 30.3 g/dL (30-55) 07/11/23 03:13 RDW 12.3 % (12.1-15.1) 07/11/23 03:13 Plt Count 198 10^3/cmm (157-399) 07/11/23 03:13 MPV 10.6 fL (7.4-10.4) H 07/11/23 03:13 Neut % (Auto) 66.3 % 07/11/23 03:13 Lymph % (Auto) 20.6 % 07/11/23 03:13 Heard % (Auto) 10.5 % 07/11/23 03:13 Eos % (Auto) 1.8 % 07/11/23 03:13 Baso % (Auto) 0.6 % 07/11/23 03:13 Neut # (Auto) 4.38 10^3/uL (1.8-7.7) 07/11/23 03:13 Lymph # (Auto) 1.4 10^3/uL (0.8-4.8) 07/11/23 03:13 Heard # (Auto) 0.7 10^3/uL (0.2-0.9) 07/11/23 03:13 Eos # (Auto) 0.1 10^3/uL (0.0-0.8) 07/11/23 03:13 Baso # (Auto) 0.0 10^3/uL (0.0-0.1) 07/11/23 03:13 Nucleated RBC % (auto) 0 % 07/11/23 03:13 Nucleated RBCs # 0.0 /100WBC 07/11/23 03:13 Sodium 140 mmol/L (136-145) 07/11/23 03:13 Potassium 4.1 mmol/L (3.5-5.1) 07/11/23 03:13 Chloride 109 mmol/L (98-107) H 07/11/23 03:13 Carbon Dioxide 23 mmol/L (22-29) 07/11/23 03:13 Anion Gap 12.1 (5-19) 07/11/23 03:13 BUN 19 mg/dL (8-23) 07/11/23 03:13 Creatinine 1.1 mg/dL (0.5-0.9) H 07/11/23 03:13 GFR Calculation Not Reportable 07/11/23 03:13 Glucose 79 mg/dL (65-115) 07/11/23 03:13 POC Glucose 91 mg/dL (70-110) 07/11/23 05:16 Calculated Osmolality 291 mOsm/kg (285-295) 07/11/23 03:13 Calcium 8.1 mg/dL (8.5-10.5) L 07/11/23 03:13 Magnesium 3.1 mg/dL (1.7-2.3) H 07/08/23 12:28 Total Bilirubin 0.3 mg/dL (0.15-1.2) 07/08/23 12:28 AST 12 U/L (0-32) 07/08/23 12:28 ALT 9 U/L (0-33) 07/08/23 12:28 Alkaline Phosphatase 73 U/L (35-105) 07/08/23 12:28 Troponin T Baseline 33 ng/L (0-10) H 07/08/23 12:28 Troponin T 120 Minute 27.68 ng/L (0-10) H 07/08/23 14:34 Delta Troponin T -5.32 ABS# (0-10) L 07/08/23 14:34 Troponin T Hi Sens 6Hr 30.65 ng/L (0-10) H 07/08/23 19:07 Troponin T Hi Sens 6Hr Delta -2.35 ng/L (0-12) L 07/08/23 19:07 NT-Pro-B Natriuret Pep 1151 pg/mL (0-450) H 07/08/23 12:28 Total Protein 6.0 g/dL (6.6-8.7) L 07/08/23 12:28 Albumin 4.0 g/dL (3.5-5.2) 07/08/23 12:28 Globulin 2.0 g/dL (1.3-4.6) 07/08/23 12:28 TSH 8.60 uIU/mL (0.27-4.20) H 07/08/23 12:28 Urine Color Light yellow (Yellow) 07/08/23 18:35 Urine Appearance Clear (CLEAR) 07/08/23 18:35 Urine pH 8 (5-7) H 07/08/23 18:35 Ur Specific [place] 1.010 (1.005-1.030) 07/08/23 18:35 Urine Protein Neg (Negative) 07/08/23 18:35 Urine Glucose (UA) Norm (Normal) 07/08/23 18:35 Urine Ketones Negative (Negative) 07/08/23 18:35 Urine Blood Neg (Negative) 07/08/23 18:35 Urine Nitrate Negative (Negative) 07/08/23 18:35 Urine Bilirubin Neg (Negative) 07/08/23 18:35 Prot Sulfosalicylic Acd Negative (Negative) 07/08/23 18:35 Urine Urobilinogen Norm mg/dL (Negative) 07/08/23 18:35 Ur Leukocyte Esterase Negative (Negative) 07/08/23 18:35 Vitals Last Vital Signs Temp 98.4 F 07/11/23 12:11 Pulse 50 L 07/11/23 12:11 Resp 12 07/11/23 12:11 BP 148/60 07/11/23 12:11 Pulse Ox 94 07/11/23 12:11 O2 Del Method Room Air 07/11/23 11:26 Discharge Plan Discharge Patient Disposition: Home Condition: Stable Prescriptions: New levothyroxine 13 mcg capsule 13 mcg PO DAILY Qty: 90 0RF Rx Instructions: Total 63 MCG daily Continued nitroglycerin 0.4 mg tablet, sublingual 0.4 mg sublingual Q5M PRN (Reason: chest pain) Qty: 30 2RF Rx Instructions: do not exceed 3 doses per episode magnesium hydroxide [Brink Milk of Magnesia] 400 mg/5 mL suspension 15 ml PO BID PRN (Reason: constipation) Qty: 3780 0RF cholecalciferol (vitamin D3) 125 mcg (5,000 unit) capsule 125 mcg PO DAILY Qty: 90 1RF Singulair 10 mg tablet 10 mg PO DAILY Qty: 90 1RF potassium chloride 20 mEq tablet extended release 20 meq PO DAILY@12 Qty: 90 1RF levothyroxine 50 mcg tablet 50 mcg PO DAILY Qty: 90 1RF atorvastatin 80 mg tablet 80 mg PO BEDTIME Carafate 1 gram tablet 1 g PO QID Rx Instructions: before meals and bedtime cyanocobalamin (vitamin B-12) 1,000 mcg/mL solution 1,000 mcg IM Q30D losartan 25 mg tablet 25 mg PO QPM furosemide 20 mg tablet 20 mg PO DAILY PRN (Reason: swelling ) Discontinued atenolol 25 mg tablet 12.5 mg PO QAM Qty: 90 3RF Discharge Orders: Discharge Order (Routine); Ordered 07/11/23 Ordered By: Juanito Weldon Other Ambulatory Orders: MCT/Event Monitor 30 Days (Routine) Timeframe: 1 Day Facility: [facility] - Location: Radiology Ordered By: Juanito Weldon Referrals: Marli Valenzuela FNP-C [Primary Care Provider] - 07/17/23 1:40 pm Toyin Cooper FNP [Nurse Practitioner] - 07/29/23 3:00 pm (Your Toyin Cooper appt is on 07-29-23 @ 3:00 p.m. You also have an appointment [facility] on 07-18-23 @ 2:00 P.m. to put on the 30 day Event Monitor. Arrive a few minutes early for paperwork. Thank you.) Patient Instructions: Levothyroxine (By mouth) (Levothroid, Levoxyl, Synthroid, Tirosint), A-fib (Atrial Fibrillation) (DC), Heart Block (DC), Bradycardia (GEN) Activity Restrictions/Additional Instructions: Follow-up with your primary provider and customer service analyst for reassessment of bradycardia. Stop atenolol. Levothyroxine dose has been increased up to 63 mcg daily, please have your primary provider follow-up your thyroid function. Follow-up with your primary doctor also regarding further workup of slow GI bleed due to which you have not been on anticoagulation for stroke risk prevention from atrial fibrillation. Monitor your heart rate and blood pressure 3 times daily, write down values to bring to your appointment. Seek medical attention in case of any worsening or new concerning symptoms Follow-up with your primary doctor for reassessment for resolution of acute kidney injury. Discharge Attestations Time Spent in Discharge Care*: greater than 30 min Quality Metrics Clinical Quality Measures [ No reported AMI, CVA or VTE this stay] Coding Level of Care Code 93870 Total time (in minutes) for Discharge: 40 Diagnoses Symptomatic bradycardia R00.1 Intermittent atrial fibrillation I48.0 Essential (primary) hypertension I10 Gastrointestinal hemorrhage with melena K92.1 GI bleed type/associated pathology: melena Type 2 diabetes mellitus without complication, with long-term current use of insulin E11.9; Z79.4 Diabetes mellitus prison insulin use: with assisted living coordinator use Diabetes mellitus complication status: without complication Acquired hypothyroidism E03.9
== END 2023-07-11 12:34 | disposition home or self-care (01) | DRG 292 ==
LOC: ER 13:17 → ICU 13:31 → CSU 07-10 18:20
PROVIDERS: Admitting Provider Internal Medicine; Emergency Provider Family Medicine; PCP Nurse Practitioner; Visit Provider Internal Medicine
DX: R57.0 Cardiogenic shock (principal); I48.20 Chronic atrial fibrillation, unspecified; N17.9 Acute kidney failure, unspecified; K92.2 Gastrointestinal hemorrhage, unspecified; R00.1 Bradycardia, unspecified; I10 Essential (primary) hypertension; E11.9 Type 2 diabetes mellitus without complications; Z79.4 Long term (current) use of insulin; E03.9 Hypothyroidism, unspecified; E78.5 Hyperlipidemia, unspecified; Z87.891 Personal history of nicotine dependence; F03.90 Unspecified dementia, unspecified severity, without behavioral disturbance, psychotic disturbance, mood disturbance, and anxiety; I35.0 Nonrheumatic aortic (valve) stenosis; J44.9 Chronic obstructive pulmonary disease, unspecified
CPT/HCPCS: 36415; 36416; 71045; 74018; 80048; 80053; 81003; 82962; 83735; 83880; 84443; 84484; 85025; 93005; 93306; 96372; 99285; J1265; J1644; J7030

== ENCOUNTER → 2023-07-29 16:26 | Outpatient (BNVA) | payer MEDICARE, OTHER, SELFPAY | PROVIDERS: PCP Nurse Practitioner; Visit Provider Nurse Practitioner | DX: I10 Essential (primary) hypertension (principal); M54.9 Dorsalgia, unspecified; M54.2 Cervicalgia; M79.10 Myalgia, unspecified site | CPT/HCPCS: 80053; 81000 ==

== ENCOUNTER → 2023-08-14 14:34 | Outpatient (BNVA) | payer MEDICARE, OTHER, SELFPAY | PROVIDERS: PCP Nurse Practitioner; Visit Provider Nurse Practitioner | DX: M47.894 Other spondylosis, thoracic region; M47.897 Other spondylosis, lumbosacral region; M47.892 Other spondylosis, cervical region; M54.2 Cervicalgia; M54.6 Pain in thoracic spine; M79.10 Myalgia, unspecified site | CPT/HCPCS: 72040; 72070; 72100 ==

== ENCOUNTER → 2023-08-28 13:03 | Outpatient (BNVA) | payer MEDICARE, OTHER, SELFPAY | PROVIDERS: PCP Nurse Practitioner; Visit Provider Nurse Practitioner Family | DX: R00.1 Bradycardia, unspecified (principal); F17.210 Nicotine dependence, cigarettes, uncomplicated | CPT/HCPCS: 99213 ==

== ENCOUNTER → 2023-08-29 10:42 | Outpatient (BNVA) | payer MEDICARE, OTHER, SELFPAY | PROVIDERS: PCP Nurse Practitioner; Visit Provider Nurse Practitioner | DX: E78.5 Hyperlipidemia, unspecified (principal); E53.8 Deficiency of other specified B group vitamins; I10 Essential (primary) hypertension; J44.9 Chronic obstructive pulmonary disease, unspecified; E03.8 Other specified hypothyroidism | CPT/HCPCS: 83540; 84443; 85025 ==

== ENCOUNTER → 2023-12-23 12:10 | Outpatient (BNVA) | payer MEDICARE, OTHER, SELFPAY | PROVIDERS: PCP Nurse Practitioner; Visit Provider Nurse Practitioner | DX: I10 Essential (primary) hypertension (principal); E53.8 Deficiency of other specified B group vitamins; E55.9 Vitamin D deficiency, unspecified; E61.1 Iron deficiency | CPT/HCPCS: 80053; 80061; 82306; 82607; 83540; 84443; 85025 ==

== ENCOUNTER → 2024-01-09 10:30 | Outpatient (BNVA) | payer MEDICARE, OTHER, SELFPAY | PROVIDERS: PCP Nurse Practitioner; Visit Provider Nurse Practitioner | DX: R53.83 Other fatigue (principal) | CPT/HCPCS: 82270 ==

== ENCOUNTER → 2024-01-23 15:17 | Outpatient (BNVA) | payer MEDICARE, OTHER, SELFPAY | PROVIDERS: PCP Nurse Practitioner; Visit Provider Internal Medicine Cardiovascular Disease | DX: R00.1 Bradycardia, unspecified (principal); I44.0 Atrioventricular block, first degree; R07.9 Chest pain, unspecified; I51.7 Cardiomegaly | CPT/HCPCS: 93005 ==

== ENCOUNTER → 2024-02-04 16:08 | Outpatient (BNVA) | payer MEDICARE, OTHER, SELFPAY | PROVIDERS: PCP Nurse Practitioner; Visit Provider Nurse Practitioner | DX: F03.90 Unspecified dementia, unspecified severity, without behavioral disturbance, psychotic disturbance, mood disturbance, and anxiety (principal); E03.8 Other specified hypothyroidism | CPT/HCPCS: 80048; 81000; 84443; 85025 ==

== ENCOUNTER 2024-02-17 09:20 | Outpatient (CLI) | payer MEDICARE, OTHER, SELFPAY ==
--- NOTE | 2024-02-17 09:30 | CT_ITS ---
WS: [id number] CT HEAD NONCONTRAST HISTORY: F03.90 - Unspecified dementia, unspecified severity, with... TECHNIQUE: Contiguous axial imaging performed through the brain. Bone and soft tissue windows. Sagitt al and coronal reformats reviewed. All CT scans at [facility] use at least one of these dose optimization techniques: automated exposure control; mA and/or kV adjustment per patient size (includ es targeted exams where dose is matched to clinical indication); or iterative reconstruction. DLP: 1009.04 mGy.cm COMPARISON: None available. No acute intracranial hemorrhage, midline shift or mass effect. Marked atrophy and small vessel disease. Prior lacunar infarcts in the basal ganglia and LEFT thalamu s. Mild cerebellar atrophy. Ventricles: Ventricles and extra-axial spaces are prominent on the basis of atrophy. No inferior displacement of cerebellar tonsils. Paranasal sinuses: As visualized are clear. Mastoid air cells: Well pneumatized. Calvarium and scalp: Skull is intact with no soft tissue edema or swelling. CT/CT head wo con* [id number] IMPRESSION: 1. No acute intracranial hemorrhage or edema. 2. Marked atrophy and small vessel disease with prior lacunar infarcts.
== END 2024-02-17 09:21 | disposition home or self-care (01) ==
LOC: RAD 09:22
PROVIDERS: PCP Nurse Practitioner; Visit Provider Nurse Practitioner
DX: F03.90 Unspecified dementia, unspecified severity, without behavioral disturbance, psychotic disturbance, mood disturbance, and anxiety (principal); G31.9 Degenerative disease of nervous system, unspecified
CPT/HCPCS: 70450

== ENCOUNTER → 2024-09-24 11:09 | Outpatient (BNVA) | payer MEDICARE, OTHER, SELFPAY | PROVIDERS: PCP Nurse Practitioner; Visit Provider Nurse Practitioner | DX: E55.9 Vitamin D deficiency, unspecified (principal); E78.5 Hyperlipidemia, unspecified; E03.8 Other specified hypothyroidism; E53.8 Deficiency of other specified B group vitamins | CPT/HCPCS: 80053; 80061; 82306; 82607; 84443; 85025 ==

== ENCOUNTER → 2024-12-17 11:37 | Outpatient (BNVA) | payer MEDICARE, OTHER, SELFPAY | PROVIDERS: PCP Nurse Practitioner; Visit Provider Nurse Practitioner | DX: E78.5 Hyperlipidemia, unspecified (principal) | CPT/HCPCS: 80048; 82306 ==